=== PATIENT | male | born 1940 | race Caucasian/White ===

== ENCOUNTER 2023-04-30 13:27 | Inpatient (IN) | payer OTHER ==
[2023-04-30 14:03] LABS: Absolute Lymphocytes (CBC) 0.5 K/uL (0.7-4.9); Basophils % 0.3 % (0-1.3); Hematocrit 45.4 % (39.6-49.0); Lymphocytes % 6.1 % (15.3-44.8); MCV 88.4 fL (80-100); MPV 8.7 fL (7.6-11.3); Platelets 266 thou/uL (152-406); RBC Red Blood Cell Count 5.14 M/uL (4.33-5.43)
[2023-04-30 14:06] LABS: Protime INR 1.26
[2023-04-30 14:14] LABS: Specific Gravity 1.009 (1.005-1.030); Urine Bacteria 20-50 /HPF (<20); Urine Bilirubin NEGATIVE (Negative); Urine Blood 2+ (Negative); Urine Clarity Extremely Turbid (Clear); Urine Color Light-Orange (Yellow); Urine Glucose 4+ (Over) (Negative); Urine Protein 2+ (Negative); Urine Urobilinogen Normal (Normal); Urine WBC Clump Many /HPF (None Seen)
[2023-04-30 14:19] LABS: Albumin/Globulin Ratio 0.4 (1.1-1.8); Anion Gap 15.3 mEq/L (5.0-15.0); Bilirubin Total 0.6 mg/dL (0.2-1.0); Potassium 5.3 mEq/L (3.5-5.1)
[2023-04-30 14:37] LABS: Blood Morphology Comment NOT SEEN (NOT SEEN); Platelet Estimate ADEQ; White Blood Cell Scan OK (OK)
--- NOTE | 2023-04-30 15:26 | RAD REPORT ---
EXAM DESCRIPTION: CT - Abdomen Pelvis Wo Contrast - 04/30/2023 2:34 pm CLINICAL HISTORY: back pain, possible urinary infection;Abd pain COMPARISON: No comparisons TECHNIQUE: Thin cut axial CT imaging of the abdomen and pelvis was performed without IV contrast. Mu ltiplanar reformats were generated and reviewed. All CT scans are performed using dose optimization technique as appropriate and may include automated exposure control or mA/KV adjustment according to patient size. FINDINGS: No suspicious findings in the lung bases. Calcific pleural plaque. The liver shows a subcentimeter hypoattenuating focus near the dome, characterized but suggestive of a small cyst. Adrenal glands, Spleen, and pancreas show no suspicious findings. Small layering gallst ones. Symmetric renal contour, without suspicious parenchymal findings within limits of noncontrast techniq ue. Bilateral moderate to advanced hydroureteronephrosis. No radiopaque calculi. No dilated bowel loops or bowel wall thickening. No free air, free fluid or inflammatory stranding. N o hernia, mass or bulky lymphadenopathy. Soft tissue thickening in the presacral space. Ovoid fluid c ollection measuring 3.0 x 1.4 cm in greatest axial dimensions and 3.5 cm in greatest craniocaudal ext ent, with marginal calcifications The urinary bladder demonstrates diffuse wall prominence, with foca l wall thickening posteriorly. Mild prostatomegaly with calcifications. 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 No suspicious bony findings. IMPRESSION: Bilateral moderate to advanced hydronephrosis. No obstructing calculi. This could relate to strictures at the ureteral orifice ease, or bladder outlet obstruction with retrograde reflux. Diffuse bladder wall thickening with some focal thickening posteriorly. The findings are nonspecific, and could relate to infection, although possibility of malignancy would be difficult to exclude. Nonspecific fluid collection in the presacral space with marginal wall calcifications. This could rep resent a postoperative chronic seroma or chronic abscess. Infrarenal abdominal aortic aneurysm, with aneurysm sac measuring up to 4.1 cm in greatest dimension. Cholelithiasis.
--- NOTE | 2023-04-30 15:39 | ER ---
Nurse's Notes [facility] Name: Broderick Kaur Age: 83 yrs Sex: Male : 1940 Arrival Date: 04/30/2023 Time: 13:27 Bed 20 Private MD: Diagnosis: UTI/ Urinary tract infection, site not specified;Acute cystitis without hematuria;Other and unspecified hydronephrosis;Acute kidney failure, unspecified Presentation: 04/29 13:36 Chief complaint: Patient states: kidneys have been hurting. Coronavirus screen: At this iw time, the client does not indicate any symptoms associated with coronavirus-19. Ebola Screen: Patient negative for fever greater than or equal to 101.5 degrees Fahrenheit, and additional compatible Ebola Virus Disease symptoms Patient denies exposure to infectious person. Patient denies travel to an Ebola-affected area in the 21 days before illness onset. No symptoms or risks identified at this time. Risk Assessment: Do you want to hurt yourself or someone else? Patient reports no desire to harm self or others. 13:36 Method Of Arrival: Ambulatory iw 13:36 Acuity: KARI 3 iw 13:42 Initial Sepsis Screen: Does the patient meet any 2 criteria? No. Patient's initial iw sepsis screen is negative. Does the patient have a suspected source of infection? No. Patient's initial sepsis screen is negative. Onset of symptoms was April 30, 2023. Triage Assessment: 13:43 General: Appears in no apparent distress. Behavior is calm, cooperative. Pain: iw Complains of pain in back. Historical: - Allergies: 13:42 No Known Allergies; iw - PMHx: 13:36 AAA; ASBESTOS EXPOSURE; Atrial Fib; COLON CA; colostomy; Diabetes - IDDM; hemorrhoids; iw High Cholesterol; Hypertension; PERIPHERAL NEUROPATHY; PULMONARY HYPERTENSION; Rectal carcinoma; skin ca; skin cancer; SVT; - Immunization history:: Adult Immunizations up to date. - Family history:: not pertinent. - Social history:: Smoking status: Patient denies any tobacco usage or history of. - Hospitalizations: : No recent hospitalization is reported. Screenin:32 [facility] ED Fall Risk Assessment (Adult) Score/Fall Risk Level 0 - 2 = Low Risk. Abuse as6 screen: Denies threats or abuse. Denies injuries from another. Nutritional screening: No deficits noted. Tuberculosis screening: No symptoms or risk factors identified. Assessment: 14:54 General: Appears in no apparent distress. Behavior is calm, cooperative. Pain: as6 Complains of pain in back. Neuro: Level of Consciousness is awake, alert, obeys commands, Oriented to person, place, time, situation. Cardiovascular: Capillary refill < 3 seconds Patient's skin is warm and dry. Respiratory: Respiratory effort is even, unlabored, Respiratory pattern is regular, symmetrical. GI: Reports lower abdominal pain. : Reports burning with urination. EENT: No deficits noted. No signs and/or symptoms were reported regarding the EENT system. Derm: Skin is intact. Musculoskeletal: Circulation, motion, and sensation intact. 16:38 Reassessment: Patient appears in no apparent distress at this time. Patient states as6 feeling better. Vital Signs: 13:36 BP 123 / 88; Pulse 84; Resp 16; Temp 97.6; Pulse Ox 100% ; iw 14:55 BP 143 / 67; Pulse 63; Resp 18 S; Pulse Ox 97% on R/A; as6 16:34 BP 166 / 67; Pulse 55; Resp 16 S; Pulse Ox 100% on R/A; as6 17:44 BP 194 / 76; Pulse 55; Resp 18 S; Pulse Ox 100% on R/A; as6 19:20 BP 159 / 85; Pulse 74; Resp 18 S; Pulse Ox 97% on R/A; as6 ED Course: 13:31 Patient arrived in ED. mr 13:32 Jarred Jimenez MD is Attending Physician. rn 13:36 Triage completed. iw 13:51 CMP Sent. bc6 13:51 Protime (+inr) Sent. bc6 13:51 Ptt, Activated Sent. bc6 13:51 CBC with Diff Sent. bc6 13:51 Inserted saline lock: 22 gauge in left antecubital area, using aseptic technique. Blood bc6 collected. 14:31 João Ng, ELISHA is Primary Nurse. as6 14:32 Arm band placed on. as6 14:35 Abdomen In Process Unspecified. EDMS 14:55 Bed in low position. Call light in reach. Side rails up X2. as6 15:38 Hussain Higuera MD is Hospitalizing Provider. rn 15:41 Inserted saline lock: 22 gauge in right antecubital area, using aseptic technique. as6 Blood collected. 16:00 Aleman cath inserted, using sterile technique, 16 Fr., by ga, balloon inflated, to as6 gravity drainage, returned clear yellow urine. Patient tolerated well. 16:34 No provider procedures requiring assistance completed. Patient admitted, IV remains in as6 place. 16:34 Provided Education on: need for aleman and admit. as6 16:38 Warm blanket given. PO fluids given. as6 Administered Medications: 15:57 Drug: Rocephin IV 1 grams IV at calculated rate once; Given slow IV push per pharmacy as6 instructions Route: IV; Rate: calculated rate; Site: right antecubital; 16:30 Follow up: Response: No adverse reaction; IV Status: Completed infusion; IV Intake: [id number] 17:16 Drug: NS 0.9% IV 1000 ml IV at 1000 ml once Route: IV; Rate: 1000 ml; Site: right as6 antecubital; 19:21 Follow up: Response: No adverse reaction; IV Status: Completed infusion; IV Intake: as6 1000ml 17:18 Drug: Insulin Regular Human Sub-Q 10 units Sub-Q once {Co-Signature: as6 (abby Ng RN).} Route: Sub-Q; Site: right upper arm; 19:21 Follow up: Response: No adverse reaction as6 Medication: 14:32 VIS not applicable for this client. as6 Intake: 16:30 IV: 10ml; Total: 10ml. as6 19:21 IV: 1000ml; Total: 1010ml. as6 Output: 17:44 Urine: 1500ml (Aleman); Total: 1500ml. as6 Outcome: 15:38 Decision to Hospitalize by Provider. rn 16:34 Condition: stable as6 16:34 Instructed on the need for admit, 18:29 Admitted to ER Hold. Please see [facility] for further documentation. as6 20:06 Patient left the ED. as6 Signatures: Dispatcher [employer] Moriah Vázquez, Reg Reg mr Sushma Hartmann, RN Jarred Mackey MD MD rn Slawson, Ashby, RN RN as6 Belen Mcneill Ashby RN as6 Corrections: (The following items were deleted from the chart) 13:42 13:36 Pulse 84bpm; Resp 16bpm; Pulse Ox 100%; Temp 97.6F; iw iw
--- NOTE | 2023-04-30 15:39 | EDPHYS ---
Physician Documentation [facility] Name: Broderick Kaur Age: 83 yrs Sex: Male : 1940 Arrival Date: 04/30/2023 Time: 13:27 Bed 20 Private MD: ED Physician Jarred Jimenez HPI: 04/29 14:08 This 83 yrs old Male presents to ER via Ambulatory with complaints of Urinary Problem. rn 14:08 The patient presents with abdominal pain in the lower abdomen. Onset: The rn symptoms/episode began/occurred 1 month(s) ago. The symptoms radiate to abdomen. Associated signs and symptoms: Pertinent positives: dysuria, Pertinent negatives: nausea and vomiting, fever, hematuria, shortness of breath, testicular pain, vomiting, vomiting blood. Modifying factors: The symptoms are alleviated by nothing, the symptoms are aggravated by nothing. Severity of pain: At its worst the pain was mild in the emergency department the pain is unchanged. The patient has experienced a previous episode. Patient reports lower abdominal pain, lower back pain, increased urinary frequency and dysuria. States has been going on for about a month. [place] clinic put him on some sort of medication, does not think it was antibiotics, got better for a little while but then returned. Patient states similar episodes in the past when he had a urinary tract infection. No fever or chills. No vomiting.. Historical: - Allergies: 13:42 No Known Allergies; iw - PMHx: 13:36 AAA; ASBESTOS EXPOSURE; Atrial Fib; COLON CA; colostomy; Diabetes - IDDM; hemorrhoids; iw High Cholesterol; Hypertension; PERIPHERAL NEUROPATHY; PULMONARY HYPERTENSION; Rectal carcinoma; skin ca; skin cancer; SVT; - Immunization history:: Adult Immunizations up to date. - Family history:: not pertinent. - Social history:: Smoking status: Patient denies any tobacco usage or history of. - Hospitalizations: : No recent hospitalization is reported. ROS: 14:08 Constitutional: Negative for fever, chills, and weight loss, Cardiovascular: Negative rn for chest pain, palpitations, and edema, Respiratory: Negative for shortness of breath, cough, wheezing, and pleuritic chest pain, Abdomen/GI: Positive for abdominal pain Back: Positive for lower back pain : Positive for increased urinary frequency and dysuria MS/Extremity: Negative for injury and deformity, Neuro: Negative for headache, weakness, numbness, tingling, and seizure, Exam: 14:08 Constitutional: This is a well developed, well nourished patient who is awake, alert, rn and in no acute distress. Ambulatory to room without difficulty or assistance Head/Face: Normocephalic, atraumatic. Cardiovascular: Regular rate and rhythm. No pulse deficits. Respiratory: No increased work of breathing, no retractions or nasal flaring. Abdomen/GI: Soft, mild suprapubic tenderness. No rebound or guarding Back: No spinal tenderness. No costovertebral tenderness. Full range of motion. MS/ Extremity: Pulses equal, no cyanosis. Neurovascular intact. Full, normal range of motion. Equal circumference. Neuro: Awake and alert, GCS 15 Vital Signs: 13:36 BP 123 / 88; Pulse 84; Resp 16; Temp 97.6; Pulse Ox 100% ; iw 14:55 BP 143 / 67; Pulse 63; Resp 18 S; Pulse Ox 97% on R/A; as6 16:34 BP 166 / 67; Pulse 55; Resp 16 S; Pulse Ox 100% on R/A; as6 17:44 BP 194 / 76; Pulse 55; Resp 18 S; Pulse Ox 100% on R/A; as6 19:20 BP 159 / 85; Pulse 74; Resp 18 S; Pulse Ox 97% on R/A; as6 MDM: 13:32 Patient medically screened. rn 15:36 Differential diagnosis: non-specific abd pain, Pyelonephritis, urinary tract infection, rn Cystitis, bladder outlet obstruction, stricture, malignancy. Data reviewed: vital signs, nurses notes, lab test result(s), radiologic studies, CT scan, and as a result, I will admit patient. Consideration of Admission/Observation Patient was admitted/placed on observation. Escalation of care including admission/observation considered. Counseling: I had a detailed discussion with the patient and/or guardian regarding the historical points, exam findings, and any diagnostic results supporting the discharge/admit diagnosis, lab results, radiology results, the need for further work-up and treatment in the hospital. Special discussion:. ED course: Patient with UTI, cystitis, bilateral hydro. Patient was able to urinate on his own earlier and has been urinating at home. Will place Hugo catheter to see if helps decompress. IV antibiotics ordered after blood culture and lactate obtained. That shows acute kidney injury compared to last visit. Will admit for IV antibiotics. 04/29 13:38 Order name: Urinalysis w/ reflexes; Complete Time: 14:27 iw 04/29 13:38 Order name: CBC with Diff; Complete Time: 15:20 iw 04/29 13:38 Order name: Protime (+inr); Complete Time: 14:27 iw 04/29 13:38 Order name: Ptt, Activated; Complete Time: 14:27 iw 04/29 13:38 Order name: CMP; Complete Time: 14:27 iw 04/29 14:17 Order name: Urine Culture EDMS 04/29 14:34 Order name: CBC Smear Scan; Complete Time: 15:20 EDMI 04/29 15:22 Order name: Blood Culture Adult (2) rn 04/29 15:22 Order name: Lactate w/ 2H reflex if indic.; Complete Time: 16:41 rn 04/29 17:08 Order name: CBC with Automated Diff EDMS 04/29 17:08 Order name: CBC with Automated Diff EDMS 04/29 17:08 Order name: Comprehensive Metabolic Panel EDMS 04/29 17:08 Order name: Comprehensive Metabolic Panel EDMS 04/29 17:08 Order name: Creatine Phosphokinase EDMS 04/29 17:08 Order name: Creatine Phosphokinase EDMS 04/29 17:08 Order name: Protime (+INR) EDMS 04/29 17:08 Order name: Protime (+INR) EDMS 04/29 17:08 Order name: PSA Screen EDMS 04/29 17:08 Order name: PSA Screen EDMS 04/29 17:08 Order name: PTT, Activated Partial Thromb EDMS 04/29 17:08 Order name: PTT, Activated Partial Thromb EDMS 04/29 17:08 Order name: Troponin High Sensitivity EDMS 04/29 17:08 Order name: Troponin High Sensitivity EDMS 04/29 14:35 Order name: Abdomen ; Complete Time: 15:33 EDMS 04/29 17:08 Order name: CONS Physician Consult EDMS 04/29 17:08 Order name: CONS Physician Consult EDMS 04/29 13:38 Order name: IV Start; Complete Time: 13:51 iw 04/29 15:34 Order name: Hugo; Complete Time: 16:17 rn Administered Medications: 15:57 Drug: Rocephin IV 1 grams IV at calculated rate once; Given slow IV push per pharmacy as6 instructions Route: IV; Rate: calculated rate; Site: right antecubital; 16:30 Follow up: Response: No adverse reaction; IV Status: Completed infusion; IV Intake: [id number] 17:16 Drug: NS 0.9% IV 1000 ml IV at 1000 ml once Route: IV; Rate: 1000 ml; Site: right as6 antecubital; 19:21 Follow up: Response: No adverse reaction; IV Status: Completed infusion; IV Intake: as6 1000ml 17:18 Drug: Insulin Regular Human Sub-Q 10 units Sub-Q once {Co-Signature: as6 (abby Ng RN).} Route: Sub-Q; Site: right upper arm; 19:21 Follow up: Response: No adverse reaction as6 Disposition Summary: 04/30/23 15:38 Hospitalization Ordered Notes: Hospitalization Status: Inpatient Admission rn Provider: Hussain Higuera rn Condition: Stable rn Problem: new rn Symptoms: have improved rn Bed/Room Type: Standard rn Location: Telemetry/MedSurg (Inpatient)(04/30/23 19:13) rv1 Room Assignment: 202(04/30/23 19:13) rv1 Diagnosis - UTI/ Urinary tract infection, site not specified rn - Acute cystitis without hematuria rn - Other and unspecified hydronephrosis rn - Acute kidney failure, unspecified rn Forms: - Medication Reconciliation Form rn - SBAR form rn - Leadership Thank You Letter rn Signatures: Dispatcher [employer] EDSushma Kuo, RN Jarred Mackey MD MD rn Slawson, Ashby, RN RN as6 Daria Sherman RN RN Moriah Polanco rv1 João Ng RN as6 Corrections: (The following items were deleted from the chart) 14:35 13:39 Abdomen Pelvis W Con+CT.RAD.BRZ ordered. EDMS EDMS 17:45 15:38 Telemetry/MedSurg (Inpatient) rn kb3 17:45 15:38 rn kb3 19:13 17:45 BR ER HOLD kb3 rv1 19:13 17:45 ERHOLD- kb3 rv1
[2023-04-30] MEDS ORDERED: CEFTRIAXONE 1000 MG/VIAL ONE (15:50)
[2023-04-30] MEDS ORDERED: ONDANSETRON 4 MG/2 ML VIAL IV PRN (17:03)
[2023-04-30] MEDS ORDERED: ACETAMINOPHEN 500 MG TAB PO PRN (17:03)
--- NOTE | 2023-04-30 17:03 | P.HP ---
Certification for Inpatient Patient admitted to: Inpatient With expected LOS: >2 Midnights Patient will require the following post-hospital care: None Practitioner: I am a practitioner with admitting privileges, knowledge of patient current condition, hospital course, and medical plan of care. Services: Services provided to patient in accordance with Admission requirements found in Title 42 Section 412.3 of the Code of Federal Regulations Patient History Date of Service: 04/30/23 Reason for admission: UTI/bilateral hydronephrosis/obstructive uropathy/hematuria History of Present Illness: Patient is an 83-year-old gentleman has been having abdominal pain for the last month. Patient went and saw his [place] physician who prescribed him medication to h elp with his urine. However, patient states his urine flow has been diminished. He started having more more pain in the suprapubic region along with the flank region bilaterally. The pain got so severe he came into the emergency room. In the ER patient had imaging studies which revealed bilateral hydronephrosis and bladder distention. Patient had a Hugo catheter placed and patient has 2 L of urine output out. Patient with some mild hematuria. Patient denies having any prostate issues. Patient states he has had some cardiac issues in the past but nothing active. Patient will be admitted to the hospital for urology consultation. Will get a leg bag and arrange for outpatient follow-up with urology. Will get urology consultation in house, but if they are not available then will have outpatient follow-up. Continue with Flomax at this time. Allergies No Known Allergies Allergy (Unverified 06/02/16 15:48) - Past Medical/Surgical History -: DM2 - Family History Father Family History: Reviewed- Non-Contributory - Social History Smoking Status: Former smoker Alcohol use: No CD- Drugs: No Review of Systems 10-point ROS is otherwise unremarkable Physical Examination - Vital Signs Temperature: 98 F (reviewed) - Physical Exam General: Alert, In no apparent distress, Oriented x3 HEENT: Atraumatic, PERRLA, Mucous membr. moist/pink, EOMI, Sclerae nonicteric Neck: Supple, 2+ carotid pulse no bruit, No LAD, Without JVD or thyroid abnormality Respiratory: Clear to auscultation bilaterally, Normal air movement Cardiovascular: Regular rate/rhythm, Normal S1 S2 Gastrointestinal: Normal bowel sounds, Soft and benign, Non-distended, No tenderness Musculoskeletal: No clubbing, No swelling, No tenderness Integumentary: No rashes Neurological: Normal gait, Normal speech, Normal strength at 5/5 x4 extr, Normal tone, Sensation intact, Cranial nerves 3-12 intact, Normal affect Lymphatics: No axilla or inguinal lymphadenopathy - Studies Laboratory Data (last 24 hrs) 04/30/23 04/30/23 04/30/23 13:50 13:50 13:50 WBC 8.50 Hgb 14.9 Hct 45.4 Plt Count 266 PT 13.8 H INR 1.26 APTT 31.6 Sodium 128 L Potassium 5.3 H BUN 58 H Creatinine 2.41 H Glucose 591 H* Total Bilirubin 0.6 AST 8 L ALT 16 Alkaline Phosphatase 134 H Assessment & Plan - Problems (Diagnosis) (1) Obstructive uropathy Current Visit: Yes Status: Acute (2) Bilateral hydronephrosis Current Visit: Yes Status: Acute (3) UTI (urinary tract infection) Current Visit: Yes Status: Acute (4) Hematuria Current Visit: Yes Status: Acute (5) YVETTE (acute kidney injury) Current Visit: Yes Status: Acute (6) Hyperglycemia Current Visit: Yes Status: Acute (7) Hyperkalemia Current Visit: Yes Status: Acute - Plan Plan: 1. Continue with gentle hydration 2. Pain control 3. Hugo catheter with leg bag placement 4. Urology consultation 5. Prostate testing 6. IV antibiotics 7. Repeat and monitor renal function 8. Strict blood sugar control 9. Physical therapy evaluation 10. Home with home health Discharge Plan: Home Plan to discharge in: Greater than 2 days - Advance Directives Does patient have a Living Will: No Does patient have a Durable POA for Healthcare: No - Code Status/Comfort Care Code Status Assessed: Yes Code Status: Full Code Critical Care: No Time Spent Managing PTS Care (In Minutes): 45
[2023-04-30] MEDS ORDERED: MORPHINE 2 MG/ML SYR IV PRN (17:27)
[2023-04-30 20:12] VITALS: O2SAT 97
[2023-04-30] MEDS: INSULIN GLARGINE 100 UNIT/ML SQ SCH (21:59)
[2023-04-30] MEDS: INSULIN REGULAR (HUMAN) 100 UNIT/ML SQ SCH (22:00)
[2023-04-30] MEDS: NA CHLORIDE 0.9% 1,000 ML IV SCH (22:00)
[2023-04-30 22:12] VITALS: BMI 23.6
[2023-05-01 04:23] LABS: Absolute Lymphocytes (CBC) 0.4 K/uL (0.7-4.9); Basophils % 0.3 % (0-1.3); Hematocrit 40.3 % (39.6-49.0); Lymphocytes % 4.5 % (15.3-44.8); MCV 85.5 fL (80-100); MPV 8.4 fL (7.6-11.3); Platelets 210 thou/uL (152-406); RBC Red Blood Cell Count 4.72 M/uL (4.33-5.43)
[2023-05-01 04:24] LABS: Protime INR 1.31
[2023-05-01 04:43] LABS: Albumin 1.6 g/dL (3.4-5.0); Albumin/Globulin Ratio 0.4 (1.1-1.8); Anion Gap 11.6 mEq/L (5.0-15.0); Bilirubin Total 0.4 mg/dL (0.2-1.0); Potassium 4.6 mEq/L (3.5-5.1); Protein, Total 5.9 g/dL (6.4-8.2); Troponin High Sensitivity 51.1 pg/mL (<58.9)
--- NOTE | 2023-05-01 06:36 | P.PN ---
Subjective Date of Service: 05/01/23 Chief Complaint: UTI/bilateral hydronephrosis/obstructive uropathy/hematuria Admitted with bladder obstruction, acute cystitis, Hugo to bedside drainage, no reported abdominal pain General: Alert, In no apparent distress, Oriented x3 HEENT: Atraumatic, PERRLA, Mucous membr. moist/pink, EOMI, Sclerae nonicteric Neck: Supple, 2+ carotid pulse no bruit, No LAD, Without JVD or thyroid abnormality Respiratory: Clear to auscultation bilaterally, Normal air movement Cardiovascular: Regular rate/rhythm, Normal S1 S2 Gastrointestinal: Normal bowel sounds, Soft and benign, Non-distended, No tenderness : Hugo to bedside drain Musculoskeletal: No clubbing, No swelling, No tenderness Integumentary: No rashes Neurological: Normal gait, Normal speech, Normal strength at 5/5 x4 extr, Normal tone, Sensation intact, Cranial nerves 3-12 intact, Normal affect Lymphatics: No axilla or inguinal lymphadenopathy Review of Systems PER HPI Physical Examination - Vital Signs Temperature: 99.0 F Blood Pressure: 147/66 Pulse: 72 Respirations: 18 Pulse Ox (%): 95 - Studies Laboratory Data (last 24 hrs) 04/30/23 04/30/23 04/30/23 13:50 13:50 13:50 WBC 8.50 Hgb 14.9 Hct 45.4 Plt Count 266 PT 13.8 H INR 1.26 APTT 31.6 Sodium 128 L Potassium 5.3 H BUN 58 H Creatinine 2.41 H Glucose 591 H* Total Bilirubin 0.6 AST 8 L ALT 16 Alkaline Phosphatase 134 H Assessment And Plan - Plan Assessment & Plan - Problems (Diagnosis) Obstructive uropathy acute Current Visit: Yes Status: Acute Hugo to bedside drainage, Flomax Bilateral hydronephrosis acute Current Visit: Yes Status: Acute Acute cystitis with hematuria acute Current Visit: Yes Status: Acute IV ceftriaxone 2 g IV twice daily Hematuria acute Current Visit: Yes Status: Acute YVETTE (acute kidney injury) acute Current Visit: Yes Status: Acute BUN 58 creatinine 2.41 improving creatinine 1.79 Hyperglycemia acute Current Visit: Yes Status: Acute Lantus, sliding scale insulin Hyperkalemia Current Visit: Yes Status: Acute Pseudo hyponatremia secondary to hyperglycemia IV fluid, strict blood sugar control Plan: 1. Continue with gentle hydration 2. Pain control 3. Hugo catheter with leg bag placement 4. Urology consultation, nephrology consult 5. Prostate testing 6. IV antibiotics 7. Repeat and monitor renal function 8. Strict blood sugar control 9. Physical therapy evaluation 10. Home with home health Discharge Plan: Home Plan to discharge in: Greater than 2 days Discharge Plan: Home - Code Status/Comfort Care Code Status: Full Code Critical Care: No Time Spent Managing PTS Care (In Minutes): 35
--- NOTE | 2023-05-01 06:42 | P.PN ---
Subjective Date of Service: 05/02/23 Chief Complaint: UTI/bilateral hydronephrosis/obstructive uropathy/hematuria Admitted with bladder obstruction, acute cystitis, Hugo to bedside drainage, no reported abdominal pain, General: Alert, In no apparent distress, Oriented x3 HEENT: Atraumatic, PERRLA, Mucous membr. moist/pink, EOMI, Sclerae nonicteric Neck: Supple, 2+ carotid pulse no bruit, No LAD, Without JVD or thyroid abnormality Respiratory: Clear to auscultation bilaterally, Normal air movement Cardiovascular: Regular rate/rhythm, Normal S1 S2 Gastrointestinal: Normal bowel sounds, Soft and benign, Non-distended, No tenderness : Hugo to bedside drain Musculoskeletal: No clubbing, No swelling, No tenderness Integumentary: No rashes Neurological: Normal gait, Normal speech, Normal strength at 5/5 x4 extr, Lymphatics: No axilla or inguinal lymphadenopathy Review of Systems per HPI Physical Examination - Vital Signs Temperature: 99.0 F Blood Pressure: 147/66 Pulse: 72 Respirations: 18 Pulse Ox (%): 95 - Studies Laboratory Data (last 24 hrs) 04/30/23 04/30/23 04/30/23 13:50 13:50 13:50 WBC 8.50 Hgb 14.9 Hct 45.4 Plt Count 266 PT 13.8 H INR 1.26 APTT 31.6 Sodium 128 L Potassium 5.3 H BUN 58 H Creatinine 2.41 H Glucose 591 H* Total Bilirubin 0.6 AST 8 L ALT 16 Alkaline Phosphatase 134 H Assessment And Plan - Plan Assessment & Plan - Problems (Diagnosis) Obstructive uropathy acute Current Visit: Yes Status: Acute Urology consulted UA culture and sensitivity 3/ urology status post bladder irrigation, needs to follow-up with urology outpatient, continue IV antibiotics x 2 (14 days) weeks after discharge Repeat renal ultrasound 3 to 5 days after of IV antibiotic, and Hugo catheter placement Nursing to irrigate Hugo catheter 60 cc of normal saline x 2 every 4 hours while gross hematuria is present Follow-up cystoscopy in 1 to 3 weeks, with voiding trial Repeat on a renal ultrasound today Bilateral hydronephrosis acute Current Visit: Yes Status: Acute Acute cystitis with hematuria acute Current Visit: Yes Status: Acute Hematuria acute Current Visit: Yes Status: Acute YVETTE (acute kidney injury) acute Current Visit: Yes Status: Acute Hyperglycemia acute Current Visit: Yes Status: Acute Hyperkalemia Current Visit: Yes Status: Acute Hyponatremia acute IV fluid Plan: 1. Continue with gentle hydration 2. Pain control 3. Hugo catheter with leg bag placement 4. Urology consultation, nephrology consult 5. Prostate testing 6. IV antibiotics 7. Repeat and monitor renal function 8. Strict blood sugar control 9. Physical therapy evaluation 10. Home with home health Discharge Plan: Home Plan to discharge in: Greater than 2 days - Code Status/Comfort Care Code Status: Full Code Critical Care: No Time Spent Managing PTS Care (In Minutes): 35
[2023-05-01] MEDS: CEFTRIAXONE 1,000 MG in NA CHLORIDE 0.9% 50 ML IVPB SCH (08:28)
--- NOTE | 2023-05-01 12:39 | CON ---
Date of Consultation: 05/01/2023 Reason For Consultation: Elevated BUN and creatinine. History Of Present Illness: This is a pleasant 83-year-old gentleman with significant past medical h istory of diabetes, no neuropathy, no retinopathy, hypertension, no CAD, no arthritis. The patient w as in his regular state of health according to the patient for the last few weeks. The patient had a bdominal pain, [facility] The patient was given some medication for urinary retention . The patient came with the same pain as he did not improve, found to have UTI and found to have hyd ronephrosis, bilateral; Hugo inserted. The patient found to have acute kidney injury with elevation in BUN and creatinine. Upon presentation to the hospital, creatinine was 2.4 with GFR 26 and hyperg lycemia. After hydration and Hugo insertion, creatinine down to 1.7. GFR has been improved to 37. Reviewing the record for the patient back in 2016, in May, creatinine 1.4 with GFR of 48. The pat ient denied taking any nonsteroidal. No recent change in his medication. Past Medical History: 1.Diabetes. 2.Hypertension. 3.Hyperlipidemia. Allergies: NO KNOWN DRUG ALLERGY. Family History: Positive for hypertension. Social History: Ex-smoker. Denied alcohol. Denied drugs abuse. Review of Systems: Head and Neck: No red eye. No ear pain. GI: Has abdominal pain. : Has difficulty urination. CARDIOTHORACIC ANESTHESIA TECHNICIAN: Not applicable. Respiratory: No shortness of breath. Cardiovascular: No chest pain. Endocrine: No polydipsia. Skin: No rash. Neuro: No weakness. Musculoskeletal: Generalized fatigue. Current Medications: The patient is on include ceftriaxone, Tylenol, Zofran, insulin, IV fluid at 75 per hour. Physical Examination: Vital Signs: When I saw the patient, the patient is lying in bed, comfortable, flat. Blood pressure 136/53, pulse of 69, afebrile. Chest: Clear to auscultation. Heart: S1, S2. Systolic murmur. Abdomen: Soft, nontender. Extremities: No edema. Neurologic: Alert. No focality. Laboratory Data: Back in May 2016, creatinine 1.4, GFR 48. Yesterday, sodium 128, potassium 5.3, bicarb 21, BUN 58, creatinine 2.4. GFR 26. Blood sugar 591, calcium 9.2. Hemoglobin yesterday 14.9 . Today lab data, sodium 135, potassium 4.6, bicarb 21, BUN 48, creatinine 1.7, blood sugar 232. GF R 37. Calcium 8.6. PSA 8.1. Albumin 1.6. Corrected calcium is 10.6. Urinalysis, specific gravity 1.009, wbc's more than 50. Assessment And Plan: 1.Acute kidney injury secondary to obstructive uropathy on chronic kidney disease, on the recovery p hase. We will continue to monitor. Continue current hydration and we will aim for better control of his blood sugar and we will add Flomax. Follow up Urology. 2.Hypertension, controlled, optimal. Please avoid any diuretic or EMMANUEL inhibitor/ARB given the acute kidney injury. 3.Hyponatremia, depletional, superimposed with pseudohyponatremia secondary to hyperglycemia, recove red, resolved. 4.Hyperkalemia secondary to renal failure, resolved. 5.Diabetes as by Primary. 6.Urinary tract infection. Continue current antibiotic. I going to follow up culture. Thank you Dr. Higuera for allowing us to participate in the care of your patient. PRECIOUS Voice ID: [id number] Report ID: [id number]
[2023-05-01] MEDS: CEFTRIAXONE 1,000 MG in NA CHLORIDE 0.9% 50 ML IVPB ONE (13:25)
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
[2023-05-01] MEDS: OXYBUTYNIN ER 5 MG TAB PO SCH (20:11)
[2023-05-01] MEDS: TAMSULOSIN 0.4 MG SR CAP PO SCH (20:12)
[2023-05-01] MEDS: GLUCERNA SHAKE 237 ML CAN PO SCH (21:30)
[2023-05-02 04:47] LABS: Albumin 1.4 g/dL (3.4-5.0); Phosphorus 2.3 mg/dL (2.5-4.9); Uric Acid 6.1 mg/dL (3.5-7.2)
--- NOTE | 2023-05-02 04:53 | P.PN ---
Subjective Date of Service: 05/02/23 Chief Complaint: UTI/bilateral hydronephrosis/obstructive uropathy/hematuria Admitted with bladder obstruction, acute cystitis, Hugo to bedside drainage, no reported abdominal pain General: Alert, In no apparent distress, Oriented x3 HEENT: Atraumatic, PERRLA, Mucous membr. moist/pink, EOMI, Sclerae nonicteric Neck: Supple, 2+ carotid pulse no bruit, No LAD, Without JVD or thyroid abnormality Respiratory: Clear to auscultation bilaterally, Normal air movement Cardiovascular: Regular rate/rhythm, Normal S1 S2 Gastrointestinal: Normal bowel sounds, Soft and benign, Non-distended, No tenderness : Hugo to bedside drain Musculoskeletal: No clubbing, No swelling, No tenderness Integumentary: No rashes Neurological: Normal gait, Normal speech, Normal strength at 5/5 x4 extr, Normal tone, Sensation intact, Cranial nerves 3-12 intact, Normal affect Lymphatics: No axilla or inguinal lymphadenopathy Review of Systems HPI Physical Examination - Vital Signs Temperature: 98.3 F Blood Pressure: 134/65 Pulse: 66 Respirations: 16 Pulse Ox (%): 98 - Studies Microbiology Data (last 24 hrs): 04/30/23 15:38 Blood - Blood Blood Culture Gram Stain - Final 04/30/23 15:38 Blood - Blood Gram Stain - Final 04/30/23 15:55 Blood - Blood Blood Culture Gram Stain - Final 04/30/23 15:55 Blood - Blood Gram Stain - Final Assessment And Plan - Plan Assessment & Plan - Problems (Diagnosis) Obstructive uropathy acute Current Visit: Yes Status: Acute Hugo to bedside drainage, Flomax Bilateral hydronephrosis acute Current Visit: Yes Status: Acute Repeat renal ultrasound 05/01 IMPRESSION: Bilateral moderate hydronephrosis. Incidentally noted bilateral simple appearing renal cysts. Bladder is decompressed limiting evaluation. 04/30 urology status post bladder irrigation, needs to follow-up with urology outpatient, continue IV antibiotics x 2 (14 days) weeks after discharge Repeat renal ultrasound 3 to 5 days after of IV antibiotic, and Hugo catheter placement Nursing to irrigate Hugo catheter 60 cc of normal saline x 2 every 4 hours while gross hematuria is present Follow-up cystoscopy in 1 to 3 weeks, with voiding trial Repeat on a renal ultrasound today Acute cystitis with hematuria acute Current Visit: Yes Status: Acute IV ceftriaxone 2 g IV twice daily Bacteremia Gram-negative rods Ceftriaxone 2 g daily Repeat blood cultures 3 7 Hematuria acute Current Visit: Yes Status: Acute YVETTE (acute kidney injury) acute Current Visit: Yes Status: Acute BUN 58 creatinine 2.41 improving creatinine 1.79 Hyperglycemia acute Current Visit: Yes Status: Acute Lantus, sliding scale insulin Hyperkalemia Current Visit: Yes Status: Acute Pseudo hyponatremia secondary to hyperglycemia IV fluid, strict blood sugar control Plan: 1. Continue with gentle hydration 2. Pain control 3. Hugo catheter with leg bag placement 4. Urology consultation, nephrology consult 5. Prostate testing 6. IV antibiotics 7. Repeat and monitor renal function 8. Strict blood sugar control 9. Physical therapy evaluation 10. Home with home health Discharge Plan: Home Plan to discharge in: Greater than 2 days Discharge Plan: Home - Code Status/Comfort Care Code Status: Full Code Time Spent Managing PTS Care (In Minutes): 35
[2023-05-02 05:03] LABS: Absolute Lymphocytes (CBC) 0.7 K/uL (0.7-4.9); Basophils % 0.5 % (0-1.3); Hematocrit 39.1 % (39.6-49.0); Lymphocytes % 7.7 % (15.3-44.8); MPV 9.2 fL (7.6-11.3); Platelets 203 thou/uL (152-406); RBC Red Blood Cell Count 4.54 M/uL (4.33-5.43)
--- NOTE | 2023-05-02 08:44 | P.DS ---
Admission Date: 04/30/23 Discharge Date: 05/05/23 Disposition: DC HOME/HOME HEALTH CARE Reason for Admission: UTI/bilateral hydronephrosis/obstructive uropathy/hematuria Brief History of Present Illness: 83-year-old gentleman has been having abdominal pain for the last month. Patient went and saw his [place] physician who prescribed him medication to help with his urine. However, patient states his urine flow has been diminished. He started having more more pain in the suprapubic region along with the flank region bilaterally. The pain got so severe he came into the emergency room. In the ER patient had imaging studies which revealed bilateral hydronephrosis and bladder distention. Patient had a Hugo catheter placed and patient has 2 L of urine output out. Patient with some mild hematuria. Patient denies having any prostate issues. Patient states he has had some cardiac issues in the past but nothing active. Patient will be admitted to the hospital for urology consultation. Will get a leg bag and arrange for outpatient follow-up with uro logy. Will get urology consultation in house, but if they are not available then will have outpatient follow-up. Continue with Flomax at this time. General: Alert, In no apparent distress, Oriented x3 HEENT: Atraumatic, PERRLA, Mucous membr. moist/pink, EOMI, Sclerae nonicteric Neck: Supple, 2+ carotid pulse no bruit, No LAD, Without JVD or thyroid abnormality Respiratory: Clear to auscultation bilaterally, Normal air movement Cardiovascular: Regular rate/rhythm, Normal S1 S2 Gastrointestinal: Normal bowel sounds, Soft and benign, Non-distended, No tenderness Musculoskeletal: No clubbing, No swelling, No tenderness Integumentary: No rashes Neurological: Normal gait, Normal speech, Normal strength at 5/5 x4 extr, Normal tone, Sensation intact, Cranial nerves 3-12 intact, Normal affect Lymphatics: No axilla or inguinal lymphadenopathy Hospital Course: 83 year-old male patient presented with abdominal pain. Was noted to have bladder obstruction, bilateral hydronephrosis, acute cystitis, hematuria. Condition improved with bladder irrigations, Hugo catheter, IV antibiotics, urology consultation. Patient was evaluated with urology, plan to repeat renal ultrasound. Patient tolerating diet, stable for discharge to home with follow-up appointment with primary care physician, with nephrology PROBLEM: bladder obstruction bilateral hydronephrosis acute cystitis hematuria New prescription Bactrim DS Oxybutynin Flomax Glucerna today Dhruv Semlee Discharge with Hugo catheter, Repeat renal ultrasound prior to discharge 14 days of p.o. antibiotics to ensure resolution of acute cystitis UA culture and sensitivity needs to follow-up with urology outpatient, continue IV antibiotics x 2 (14 days) weeks after discharge Follow-up cystoscopy in 1 to 3 weeks, with voiding trial Continue home medicines as previously prescribed GOAL: Clear understanding of disease process INSTRUCTIONS: Physician Discharge Instructions: -Follow-up with PCP in 1 to 2 weeks -Please call Dr. Higuera at [phone] if any questions regarding hospital stay -Please call nursing station at [phone] if any nursing or medication questions -Return to the emergency room if symptoms worsen Diet: ADA, low sodium Activity: Fall precautions Vital Signs/Physical Exam: Temp Pulse Resp BP Pulse Ox 99.0 F 72 18 147/66 H 95 05/02/23 08:38 05/02/23 08:38 05/02/23 08:38 05/02/23 08:38 05/02/23 08:38 Laboratory Data at Discharge: WBC 8.60 thou/uL (4.3-10.9) 05/02/23 04:06 Hgb 13.0 g/dL (13.6-17.9) L 05/02/23 04:06 Hct 39.1 % (39.6-49.0) L 05/02/23 04:06 Plt Count 203 thou/uL (152-406) 05/02/23 04:06 PT 14.3 SECONDS (9.5-12.5) H 05/01/23 04:01 INR 1.31 05/01/23 04:01 APTT 26.5 SECONDS (24.3-36.9) 05/01/23 04:01 Sodium 135 mEq/L (136-145) L 05/02/23 04:06 Potassium 4.0 mEq/L (3.5-5.1) D 05/02/23 04:06 BUN 39 mg/dL (7-18) H 05/02/23 04:06 Creatinine 1.47 mg/dL (0.70-1.30) H 05/02/23 04:06 Glucose 214 mg/dL (74-106) H 05/02/23 04:06 Uric Acid 6.1 mg/dL (3.5-7.2) 05/02/23 04:06 Phosphorus 2.3 mg/dL (2.5-4.9) L 05/02/23 04:06 Total Bilirubin 0.4 mg/dL (0.2-1.0) 05/01/23 04:01 AST 13 U/L (15-37) L 05/01/23 04:01 ALT 16 U/L (16-61) 05/01/23 04:01 Alkaline Phosphatase 114 U/L (45-117) 05/01/23 04:01 Home Medications: Allopurinol 100 mg PO DAILY 05/02/23 Amlodipine Besylate 10 mg PO DAILY 05/02/23 Atorvastatin Calcium [Lipitor] 120 mg PO BEDTIME 05/02/23 Cyanocobalamin (Vitamin B-12) [Vitamin B-12] 1,000 mcg PO DAILY 05/02/23 Ergocalciferol (Vitamin D2) [Drisdol] 1,250 mcg PO SEECOM 05/02/23 Ferrous Gluconate 324 mg PO DAILY 05/02/23 Furosemide 20 mg PO DAILY 05/02/23 Isosorbide Mononitrate [Isosorbide Mononitrate ER] 300 mg PO DAILY 05/02/23 Lisinopril [Zestril] 30 mg PO DAILY 05/02/23 Rivaroxaban [Xarelto*] 20 mg PO DAILY AT SUPPER 05/02/23 Glucerna Shake [Glucerna*] 237 ml PO BID #60 can 05/03/23 Insulin Glargine,Hum.rec.anlog [Semglee] 20 unit SQ BEDTIME #2 vial 05/03/23 Dhruv [Dhruv*] 1 each PO BID #60 packet 05/03/23 Smz./Tmp. [Bactrim Ds 800 MG/160 MG] 1 tab PO BID 14 Days #28 tab 05/03/23 Tamsulosin [Flomax*] 0.4 mg PO BEDTIME 30 Days #30 cap 05/03/23 oxyBUTYnin chloride [Ditropan Xl*] 5 mg PO DAILY #30 tab.sa 05/03/23 New Medications: Smz./Tmp. [Bactrim Ds 800 MG/160 MG] 1 tab PO BID 14 Days #28 tab oxyBUTYnin chloride [Ditropan Xl*] 5 mg PO DAILY #30 tab.sa Tamsulosin [Flomax*] 0.4 mg PO BEDTIME 30 Days #30 cap Glucerna Shake [Glucerna*] 237 ml PO BID #60 can Dhruv [Dhruv*] 1 each PO BID #60 packet Insulin Glargine,Hum.rec.anlog [Semglee] 20 unit SQ BEDTIME #2 vial Physician Discharge Instructions: 83 year-old male patient presented with abdominal pain. Was noted to have bladder obstruction, bilateral hydronephrosis, acute cystitis, hematuria. Condition improved with bladder irrigations, Hugo catheter, IV antibiotics, urology consultation. Patient was evaluated with urology, plan to repeat renal ultrasound. Patient tolerating diet, stable for discharge to home with follow-up appointment with primary care physician, with nephrology PROBLEM: bladder obstruction bilateral hydronephrosis acute cystitis hematuria Discharge with Hugo catheter, / Repeat renal ultrasound prior to discharge impression: Bilateral moderate hydronephrosis. Bilateral simple appearing renal cysts. Bladder is decompressed. 14 days of p.o. antibiotics to ensure resolution of acute cystitis UA culture and sensitivity chosen [facility] services. Sw sent referral to [facility]. To assist with Hugo catheter needs to follow-up with urology outpatient, continue IV antibiotics x 2 (14 days) weeks after discharge Follow-up cystoscopy in 1 to 3 weeks, with voiding trial Discharge home with home health for assistance with Hugo care Continue home medicines as previously prescribed GOAL: Clear understanding of disease process INSTRUCTIONS: Physician Discharge Instructions: -Follow-up with PCP in 1 to 2 weeks -Please call Dr. Higuera at [phone] if any questions regarding hospital stay -Please call nursing station at [phone] if any nursing or medication questions -Return to the emergency room if symptoms worsen Diet: ADA, low sodium Activity: Fall precautions Diet: Low sodium Activity: Fall precautions Followup: NONE,NONE [Primary Care Provider] - Time spent managing pt's care (in minutes): 55
[2023-05-02] MEDS: CEFTRIAXONE 2,000 MG in NA CHLORIDE 0.9% 50 ML IV SCH (10:21)
--- NOTE | 2023-05-02 10:38 | RAD REPORT ---
EXAM DESCRIPTION: US - Renal Ultrasound-Complete - 05/02/2023 9:44 am CLINICAL HISTORY: Hydronephrosis COMPARISON: Abdomen Pelvis Wo Contrast dated 04/30/2023 TECHNIQUE: Sonographic grayscale and color flow images of the kidneys and bladder were obtained. FINDINGS: Both kidneys are normal in size, shape, and echotexture. The right kidney measures 11.4 cm in length. No focal mass, or echogenic calculi. The left kidney measures 11.4 cm in length. No focal mass, or echogenic calculi. Bilateral moderate hydronephrosis, with AP diameter of the pelvis measuring 2.8 cm on the right and 1 .9 cm on the left. Multiple small cortical cysts, largest measuring 2.1 cm on the left near the lower pole. The urinary bladder is decompressed with Hugo catheter balloon seen. IMPRESSION: Bilateral moderate hydronephrosis. Incidentally noted bilateral simple appearing renal cysts. Bladder is decompressed limiting evaluation.
[2023-05-02] MEDS: NA CHLORIDE 0.9% 1,000 ML IV SCH (12:57)
--- NOTE | 2023-05-02 14:57 | PN ---
Date of Progress Note: 05/02/2023 Subjective: The patient was admitted with obstructive uropathy. The patient seen by Urology. Patti nued intermittent irrigation. Kidney function continued to improve. Physical Examination: General: When I saw the patient, the patient lying in bed. Vital Signs: Blood pressure 145/73, pulse of 75, afebrile. Chest: Clear to auscultation. Heart: S1, S2 regular. Abdomen: Soft, nontender. Extremities: No edema. Neurologic: Alert. No focality. Labs: WBC 7.6, hemoglobin 13. Sodium 135, potassium 4, bicarb 20, BUN 39, creatinine 1.4, continued to improve. Calcium 8.1, uric acid 6.1, phosphorus 2.3, albumin 1.4, corrected calcium is 10.2. Current Medications: The patient on include: 1.Ceftriaxone. 2.Flomax. 3.Zofran. 4.Insulin. 5.IV fluid at 75 per hour. Assessment And Plan: 1.Acute kidney injury multifactorial secondary to obstructive uropathy, prerenal, on the recovery ph ase. The patient close to baseline. I am going to decrease the IV fluid to 50. However, continue F aleksandra. Follow up with Urology. 2.Hypertension, controlled, optimal. Continue current treatment. 3.Hyponatremia, depletional. Will continue hydration. 4.Hyperkalemia, resolved. 5.Obstructive uropathy. Follow up with Urology. 6.UTI, complicated, with obstructive uropathy. Will follow up culture. Continue current antibiotic . Growing klebsiella which is sensitive to Levaquin, so the patient needs to be switched to quinolone or Augmentin orally if okay f rom the renal standpoint. ANTWAN/JUSTYN Voice ID: [id number] Report ID: [id number]
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
[2023-05-03 05:39] LABS: Albumin 1.4 g/dL (3.4-5.0)
--- NOTE | 2023-05-03 07:26 | P.PN ---
Subjective Date of Service: 05/03/23 Chief Complaint: UTI/bilateral hydronephrosis/obstructive uropathy/hematuria Discharge held plan to insert coud catheter by Dr. Jones General: Alert, In no apparent distress, Oriented x3 HEENT: Atraumatic, PERRLA, Mucous membr. moist/pink, EOMI, Sclerae nonicteric Neck: Supple, 2+ carotid pulse no bruit, No LAD, Without JVD or thyroid abnormality Respiratory: Clear to auscultation bilaterally, Normal air movement Cardiovascular: Regular rate/rhythm, Normal S1 S2 Gastrointestinal: Normal bowel sounds, Soft and benign, Non-distended, No tenderness : Hugo to bedside drain Musculoskeletal: No clubbing, No swelling, No tenderness Integumentary: No rashes Neurological: Normal gait, Normal speech, Normal strength at 5/5 x4 extr, Normal tone, Sensation intact, Cranial nerves 3-12 intact, Normal affect Lymphatics: No axilla or inguinal lymphadenopathy Review of Systems Per HPI Physical Examination - Vital Signs Temperature: 97.3 F Blood Pressure: 124/61 Pulse: 59 Respirations: 16 Pulse Ox (%): 96 - Studies Microbiology Data (last 24 hrs): 04/30/23 15:38 Blood - Blood Aerobic Blood Culture - Final Klebsiella Pneumoniae 04/30/23 15:38 Blood - Blood Blood Culture Gram Stain - Final 04/30/23 15:38 Blood - Blood Anaerobic Blood Culture - Final Klebsiella Pneumoniae 04/30/23 15:38 Blood - Blood Gram Stain - Final 04/30/23 15:55 Blood - Blood Aerobic Blood Culture - Final Klebsiella Pneumoniae 04/30/23 15:55 Blood - Blood Blood Culture Gram Stain - Final 04/30/23 15:55 Blood - Blood Anaerobic Blood Culture - Final Klebsiella Pneumoniae 04/30/23 15:55 Blood - Blood Gram Stain - Final 04/30/23 13:55 Clean Catch Urine [place] Count - Final >100,000 CFU/ML. 04/30/23 13:55 Clean Catch Urine - Final Klebsiella Pneumoniae Assessment And Plan - Plan Assessment & Plan - Problems (Diagnosis) Obstructive uropathy acute improving Current Visit: Yes Status: Acute Hugo to bedside drainage, Flomax Bilateral hydronephrosis acute improving Current Visit: Yes Status: Acute Repeat renal ultrasound 05/01 IMPRESSION: Bilateral moderate hydronephrosis. Incidentally noted bilateral simple appearing renal cysts. Bladder is decompressed limiting evaluation. 04/30 urology status post bladder irrigation, needs to follow-up with urology outpatient, continue IV antibiotics x 2 (14 days) weeks after discharge Repeat renal ultrasound 3 to 5 days after of IV antibiotic, and Hugo catheter placement Nursing to irrigate Hugo catheter 60 cc of normal saline x 2 every 4 hours while gross hematuria is present Follow-up cystoscopy in 1 to 3 weeks, with voiding trial Repeat renal ultrasound today 05/02/2023 renal ultrasound impression: Bilateral moderate hydronephrosis. Bilateral simple appearing renal cysts. Bladder is decompressed. 05/02 Dr. Burkett to insert coud catheter discharge he will receive Acute cystitis with hematuria acute improving Current Visit: Yes Status: Acute IV ceftriaxone 2 g IV twice daily 04/30/2023 urine culture revealed Klebsiella resistant to ampicillin and Macrobid, intermediate to Cipro Bacteremia Gram-negative rods Ceftriaxone 2 g daily Repeat blood cultures 05/02 pending report Hematuria acute Current Visit: Yes Status: Acute YVETTE (acute kidney injury) acute Current Visit: Yes Status: Acute BUN 58 creatinine 2.41 improving creatinine 1.79 Nephrology is following Trend kidney function Hyperglycemia acute Current Visit: Yes Status: Acute Lantus, sliding scale insulin Hyperkalemia Current Visit: Yes Status: Acute Pseudo hyponatremia secondary to hyperglycemia IV fluid, strict blood sugar control Plan: 1. Continue with gentle hydration 2. Pain control 3. Hugo catheter with leg bag placement 4. Urology consultation, nephrology consult 5. Prostate testing 6. IV antibiotics 7. Repeat and monitor renal function 8. Strict blood sugar control 9. Physical therapy evaluation 10. Home with home health Discharge Plan: Home Plan to discharge in: Greater than 2 days Discharge Plan: Home - Code Status/Comfort Care Code Status: Full Code Critical Care: No Time Spent Managing PTS Care (In Minutes): 35
[2023-05-03] MEDS: LIDOCAINE JELLY 2% 5 ML SYRINGE TOP ONE (14:24)
--- NOTE | 2023-05-03 16:15 | PN ---
Date of Progress Note: 05/03/2023 Subjective: The patient was admitted with obstructive uropathy, hematuria, acute kidney injury. The patient was started on hydration. Hugo was inserted. Started on irrigation by Urology. Kidney fu nction started improving. Hematuria resolved, but yesterday rebound. Physical Examination: Vital Signs: Blood pressure 153/80, pulse of 69, afebrile. Chest: Clear to auscultation. Heart: S1, S2. Systolic murmur. Abdomen: Soft, nontender. Extremities: No edema. Neurologic: Alert. No focality. : The patient has Hugo with hematuria. Laboratory Data: Hemoglobin 13. Sodium 138, potassium 4, bicarb 20, BUN 34, creatinine down to 1.2. GFR of 59. Calcium 8. Phosphorus 2. Albumin 1.4. Corrected calcium is 10. Current Medications: The patient is on include ceftriaxone, Flomax, Tylenol, insulin, IV fluid. Assessment And Plan: 1.Acute kidney injury secondary to obstructive uropathy, prerenal, recovered, resolved. Given the p resence of hematuria, I am going to continue with the IV fluid currently. 2.Hypertension, controlled, optimal. Continue current treatment. 3.Hyponatremia, depletional, recovered, resolved. 4.Hyperkalemia secondary to renal failure, resolved. 5.Acidosis secondary to IV fluid and renal failure, mild. No need for any bicarb drip. I am going to start with only oral and we will monitor the patient. 6.Obstructive uropathy as above. We will follow up with Urology. Continue intermittent irrigation. Continue Flomax and Hugo. ANTWAN/JUSTYN Voice ID: [id number] Report ID: [id number]
[2023-05-03] MEDS: SODIUM BICARB 325 MG TAB PO SCH (21:31)
[2023-05-04 04:13] LABS: Albumin 1.4 g/dL (3.4-5.0); Anion Gap 10.8 mEq/L (5.0-15.0); Phosphorus 2.5 mg/dL (2.5-4.9); Potassium 3.8 mEq/L (3.5-5.1)
--- NOTE | 2023-05-04 07:19 | P.PN ---
Subjective Date of Service: 05/04/23 Chief Complaint: UTI/bilateral hydronephrosis/obstructive uropathy/hematuria Discharge held plan to insert coud catheter by Dr. Jones Hugo irrigation every 4 hours General: Alert, In no apparent distress, Oriented x3 HEENT: Atraumatic, PERRLA, Mucous membr. moist/pink, EOMI, Sclerae nonicteric Neck: Supple, 2+ carotid pulse no bruit, No LAD, Without JVD or thyroid abnormality Respiratory: Clear to auscultation bilaterally, Normal air movement Cardiovascular: Regular rate/rhythm, Normal S1 S2 Gastrointestinal: Normal bowel sounds, Soft and benign, Non-distended, No tenderness : Hugo to bedside drain Musculoskeletal: No clubbing, No swelling, No tenderness Integumentary: No rashes Neurological: Normal gait, Normal speech, Normal strength at 5/5 x4 extr, Normal tone, Sensation intact, Cranial nerves 3-12 intact, Normal affect Lymphatics: No axilla or inguinal lymphadenopathy Review of Systems Per HPI Physical Examination - Vital Signs Temperature: 98.2 F Blood Pressure: 151/67 Pulse: 51 Respirations: 18 Pulse Ox (%): 98 - Studies Microbiology Data (last 24 hrs): 04/30/23 15:38 Blood - Blood Aerobic Blood Culture - Final Klebsiella Pneumoniae 04/30/23 15:38 Blood - Blood Blood Culture Gram Stain - Final 04/30/23 15:38 Blood - Blood Anaerobic Blood Culture - Final Klebsiella Pneumoniae 04/30/23 15:38 Blood - Blood Gram Stain - Final 04/30/23 15:55 Blood - Blood Aerobic Blood Culture - Final Klebsiella Pneumoniae 04/30/23 15:55 Blood - Blood Blood Culture Gram Stain - Final 04/30/23 15:55 Blood - Blood Anaerobic Blood Culture - Final Klebsiella Pneumoniae 04/30/23 15:55 Blood - Blood Gram Stain - Final Assessment And Plan - Plan Assessment & Plan - Problems (Diagnosis) Obstructive uropathy acute improving Current Visit: Yes Status: Acute Hugo to bedside drainage, Flomax Bilateral hydronephrosis acute improving Current Visit: Yes Status: Acute Repeat renal ultrasound 05/01 IMPRESSION: Bilateral moderate hydronephrosis. Incidentally noted bilateral simple appearing renal cysts. Bladder is decompressed limiting evaluation. 04/30 urology status post bladder irrigation, needs to follow-up with urology outpatient, continue IV antibiotics x 2 (14 days) weeks after discharge Repeat renal ultrasound 3 to 5 days after of IV antibiotic, and Hugo catheter placement Nursing to irrigate Hugo catheter 60 cc of normal saline x 2 every 4 hours while gross hematuria is present Follow-up cystoscopy in 1 to 3 weeks, with voiding trial Repeat renal ultrasound today 05/02/2023 renal ultrasound impression: Bilateral moderate hydronephrosis. Bilateral simple appearing renal cysts. Bladder is decompressed. 05/02 Dr. Burkett to insert coud catheter discharge he will receive Acute cystitis with hematuria acute improving Current Visit: Yes Status: Acute IV ceftriaxone 2 g IV twice daily 04/30/2023 urine culture revealed Klebsiella resistant to ampicillin and Macrobid, intermediate to Cipro Bacteremia Gram-negative rods Ceftriaxone 2 g daily Repeat blood cultures 05/02 pending report Hematuria acute Current Visit: Yes Status: Acute YVETTE (acute kidney injury) acute Current Visit: Yes Status: Acute BUN 58 creatinine 2.41 improving creatinine 1.79 Nephrology is following Trend kidney function Hyperglycemia acute Current Visit: Yes Status: Acute Lantus, sliding scale insulin Hyperkalemia Current Visit: Yes Status: Acute Pseudo hyponatremia secondary to hyperglycemia IV fluid, strict blood sugar control Plan: 1. Continue with gentle hydration 2. Pain control 3. Hugo catheter with leg bag placement 4. Urology consultation, nephrology consult 5. Prostate testing 6. IV antibiotics 7. Repeat and monitor renal function 8. Strict blood sugar control 9. Physical therapy evaluation 10. Home with home health Discharge Plan: Home Plan to discharge in: Greater than 2 days Discharge Plan: Home - Code Status/Comfort Care Code Status: Full Code Critical Care: No Time Spent Managing PTS Care (In Minutes): 35
[2023-05-04] MEDS: ALBUMIN HUMAN 25% 100 ML IV ONE (08:42)
[2023-05-04 09:08] VITALS: BP 174/77; TEMP 97.9
== END 2023-05-04 11:38 | disposition home health service (06) | DRG 690 ==
LOC: ER 13:27 → ERHOLD 17:03 → 2ND 19:30
PROVIDERS: ADMIT Hospitalist; ATTEND Hospitalist
PROC: 0T9B70Z Drainage of Bladder with Drainage Device, Via Natural or Artificial Opening (ICD-10-PCS; principal; 2023-04-30)
DX: N13.6 Pyonephrosis (principal); I48.20 Chronic atrial fibrillation, unspecified; E87.1 Hypo-osmolality and hyponatremia; R78.81 Bacteremia; N17.9 Acute kidney failure, unspecified; E87.5 Hyperkalemia; I10 Essential (primary) hypertension; E11.42 Type 2 diabetes mellitus with diabetic polyneuropathy; E11.65 Type 2 diabetes mellitus with hyperglycemia; E78.00 Pure hypercholesterolemia, unspecified; N28.1 Cyst of kidney, acquired; N32.0 Bladder-neck obstruction; M10.9 Gout, unspecified; N39.490 Overflow incontinence; R31.0 Gross hematuria; R33.9 Retention of urine, unspecified; Z93.3 Colostomy status; Z79.4 Long term (current) use of insulin; Z90.49 Acquired absence of other specified parts of digestive tract; Z85.038 Personal history of other malignant neoplasm of large intestine; Z85.828 Personal history of other malignant neoplasm of skin; Z87.891 Personal history of nicotine dependence; Z79.899 Other long term (current) drug therapy
CPT/HCPCS: 36415; 51702; 74176; 76770; 80053; 80069; 81001; 82550; 82947; 83605; 83970; 84484; 84550; 85025; 85610; 85730; 87040; 87077; 87086; 87088; 87186; 87205; 96361; 96365; 96372; 97110; 97116; 97161; 97530; 99285; G0103; J0696; J1815; J7030; P9047

== ENCOUNTER 2024-02-25 09:03 | Emergency (ER) | payer OTHER ==
--- OUTSIDE RECORDS SUMMARY | 2024-02-25 09:06 | XMS REPORT | Continuity of Care Document ---
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 Name Role Phone Unavailable Unavailable Unavailable Problems Condition Name Condition Details Condition Category Status Onset Date Resolution Date Last Treatment Date Treating Clinician Comments Source Urinary retention Urinary retention Problem [facility] [id number] Benign prostatic hyperplasi a with lower urinary tract symptoms Problem [facility] [id number] Acute urinary retention Problem [facility] [id number] Other obstructiv e and reflux uropathy Problem [facility] [id number] Elevated PSA Problem [facility] [id number] Bilateral hydronephr osis Problem [facility] [id number] Detrusor dysfunctio n Problem [facility] [id number] Detrusor instabilit y Problem [facility] [id number] Gross hematuria Problem [facility] Social History Social Habit Start Date Stop Date Quantity Comments Source History of Tobacco Use [facility] Sex Assigned At [facility] Smoking Status Start Date Stop Date Source Never Smoker [facility] Medications Ordered Medication Name Filled Medication Name Start Date Stop Date Current Medication? Ordering Clinician Indication Dosage Frequency Signature (SIG) Comments Components Source Lisinopril 30 MG Lisinopril 30 MG No 1{table t} QD Lisinopril 30 MG Ergocalcife rol 1.25 MG (12997 UT) Ergocalcife rol 1.25 MG (39790 UT) No 1{capsu le} Ergocalcif geovani 1.25 MG (72818 UT) Furosemide 20 MG Furosemide 20 MG No 1{table t} QD Furosemide 20 MG amLODIPine Besylate 10 MG amLODIPine Besylate 10 MG No 1{table t} QD amLODIPine Besylate 10 MG Insulin Glargine Insulin Glargine No Insulin Glargine Tamsulosin HCl 0.4 MG Tamsulosin HCl 0.4 MG No 1{capsu le} QD Tamsulosin HCl 0.4 MG Allopurinol 100 MG Allopurinol 100 MG No 1{table t} QD Allopurino l 100 MG oxyBUTYnin Chloride ER 5 MG oxyBUTYnin Chloride ER 5 MG No 1{table t} QD oxyBUTYnin Chloride ER 5 MG Ferrous Gluconate 324 (37.5 Fe) MG Ferrous Gluconate 324 (37.5 Fe) MG No 1{table t} Ferrous Gluconate 324 (37.5 Fe) MG Tylenol 325 MG Tylenol 325 MG No 2{capsu le_as_n eeded} TID Tylenol 325 MG Atorvastati n Calcium 80 MG Atorvastati n Calcium 80 MG No 1{table t} QD Atorvastat in Calcium 80 MG NovoLOG FlexPen 100 UNIT/ML NovoLOG FlexPen 100 UNIT/ML No NovoLOG FlexPen 100 UNIT/ML Sulfamethox azole-Trime thoprim 800-160 MG Sulfamethox azole-Trime thoprim 800-160 MG No 1{table t} Sulfametho xazole-Tri methoprim 800-160 MG Xarelto 20 MG Xarelto 20 MG No 1{table t_with_ food} QD Xarelto 20 MG Vitamin B12 1000 MCG Vitamin B12 1000 MCG No 1{table t} QD Vitamin B12 1000 MCG Isosorbide Mononitrate ER 30 MG Isosorbide Mononitrate ER 30 MG No 1{table t_in_ e_morni ng} QD Isosorbide Mononitrat e ER 30 MG Vital Signs Vital Name Observation Time Observation Value Comments S ource height 2023-09-26 16:15:00 73 [in_i] Commo n [facility] weight 2023-09-26 16:15:00 169 [lb_av] Comm on [facility] temperature 2023-09-26 16:15:00 98.7 [degF] Com [facility] bmi 2023-09-26 16:15:00 22.29 kg/m2 Comm on [facility] oximetry 2023-09-26 16:15:00 97 % Commo n [facility] blood pressure systolic 2023-09-26 16:15:00 138 mm[Hg[facility] blood pressure diastolic 2023-09-26 16:15:00 86 mm[Hg] [facility] height 2023-08-01 15:30:00 73 [in_i] Commo n [facility] weight 2023-08-01 15:30:00 183.4 [lb_av] Co [facility] temperature 2023-08-01 15:30:00 98.1 [degF] Com [facility] bmi 2023-08-01 15:30:00 24.19 kg/m2 Comm on [facility] oximetry 2023-08-01 15:30:00 99 % Commo n [facility] respiratory rate 2023-08-01 15:30:00 18 /min [facility] blood pressure systolic 2023-08-01 15:30:00 170 mm[Hg] [facility] blood pressure diastolic 2023-08-01 15:30:00 88 mm[Hg] [facility] height 2023-06-28 16:30:00 73 [in_i] Commo n [facility] weight 2023-06-28 16:30:00 185.6 [lb_av] Co [facility] temperature 2023-06-28 16:30:00 98.4 [degF] Com [facility] bmi 2023-06-28 16:30:00 24.48 kg/m2 Comm on [facility] oximetry 2023-06-28 16:30:00 98 % Commo n [facility] respiratory rate 2023-06-28 16:30:00 18 /min [facility] blood pressure systolic 2023-06-28 16:30:00 166 mm[Hg] [facility] blood pressure diastolic 2023-06-28 16:30:00 82 mm[Hg] [facility] Encounters Start Date/Time End Date/Time Encounter Type Admission Type Attending [facility] Care Department Encounter ID Source 2023-10-03 09:35:02 Outpatient [facility] [id number] [facility] 2023-08-17 15:07:00 Outpatient [facility] [id number] [facility] 2023-07-11 16:32:00 Outpatient [facility] [id number] [facility] 2023-06-28 15:57:03 Outpatient [facility] [id number] [facility] 2024-02-04 00:00:00 2024-02-04 00:00:00 ([place]) Nurse Visit [facility] [id number] [facility] 2024-01-22 00:00:00 2024-01-22 00:00:00 ([place]) Nurse Visit [facility] [id number] [facility] 2023-12-25 00:00:00 2023-12-25 00:00:00 ([place]) Nurse Visit [facility] [id number] [facility] 2023-11-21 00:00:00 2023-11-21 00:00:00 ([place]) Nurse Visit [facility] [id number] [facility] 2023-09-26 00:00:00 2023-09-26 00:00:00 OFFICE VISIT ESTAB PT LEVEL 5 [facility] [id number] [facility] 2023-08-29 00:00:00 2023-08-29 00:00:00 (PROC) Procedure [facility] [id number] [facility] 2023-08-03 00:00:00 2023-08-03 00:00:00 (TEL) [facility] [id number] [facility] 2023-08-01 00:00:00 2023-08-01 00:00:00 OFFICE VISIT ESTAB PT LEVEL 4 [facility] [id number] [facility] 2023-06-28 00:00:00 2023-06-28 00:00:00 OFFICE VISIT ESTAB PT LEVEL 2 [facility] [id number] [facility]
[2024-02-25 10:06] LABS: Specific Gravity 1.012 (1.005-1.030); Urine Bilirubin NEGATIVE (Negative); Urine Blood 2+ (Negative); Urine Clarity Extremely Turbid (Clear); Urine Color Light-Orange (Yellow); Urine Glucose NEGATIVE (Negative); Urine Ketones NEGATIVE (Negative); Urine Micro Reflex YN NO BILL NO MICROSCOPIC; Urine Nitrite NEGATIVE (Negative); Urine Protein 4+ (Over) (Negative); Urine Urobilinogen Normal (Normal); Urine pH 6.5 (5.0-7.0)
[2024-02-25 10:08] LABS: Urine Bacteria 20-50 /HPF (<20); Urine RBC >50 /HPF (None Seen); Urine WBC >50 /HPF (<5)
[2024-02-25 10:09] LABS: Urine Culture Reflex Order REFLEXED
--- NOTE | 2024-02-25 10:17 | ER ---
Nurse's Notes [facility] Name: Broderick Kaur Age: 83 yrs Sex: Male : 1940 Arrival Date: 02/25/2024 Time: 09:03 Bed 19 Private MD: Diagnosis: Acute cystitis with hematuria;Leakage of indwelling urethral catheter, initial encounter;Retention of urine, unspecified Presentation: 02/24 09:08 Chief complaint: Patient states: aleman catheter came out yesterday. Pt is requesting a ss new aleman. Coronavirus screen: Client denies travel out of the [place] in the last 14 days. Ebola Screen: Patient denies exposure to infectious person. Patient denies travel to an Ebola-affected area in the 21 days before illness onset. Initial Sepsis Screen: Does the patient meet any 2 criteria? No. Patient's initial sepsis screen is negative. Does the patient have a suspected source of infection? No. Patient's initial sepsis screen is negative. Risk Assessment: Do you want to hurt yourself or someone else? Patient reports no desire to harm self or others. Onset of symptoms was February 24, 2024. 09:08 Method Of Arrival: Ambulatory ss 09:08 Acuity: KARI 3 ss Triage Assessment: 10:37 General: Appears in no apparent distress. comfortable, Behavior is calm, cooperative. cm10 Neuro: No deficits noted. Level of Consciousness is awake, alert, obeys commands, Oriented to person, place, time, situation, Appropriate for age. Historical: - Allergies: 09:14 No Known Allergies; jl7 - PMHx: 09:14 AAA; ASBESTOS EXPOSURE; Atrial Fib; COLON CA; colostomy; Diabetes - IDDM; hemorrhoids; jl7 High Cholesterol; Hypertension; PERIPHERAL NEUROPATHY; PULMONARY HYPERTENSION; Rectal carcinoma; skin cancer; SVT; - Immunization history:: Adult Immunizations unknown. - Infectious Disease History:: Denies. - Social history:: Smoking status: unknown. Screenin:15 [facility] ED Fall Risk Assessment (Adult) History of falling in the last 3 months, jl7 including since admission No falls in past 3 months (0 pts) Confusion or Disorientation No (0 pts) Intoxicated or Sedated No (0 pts) Impaired Gait No (0 pts) Mobility Assist Device Used No (0 pt) Altered Elimination No (0 pt) Score/Fall Risk Level 0 - 2 = Low Risk Oriented to surroundings, Maintained a safe environment. Abuse screen: Denies threats or abuse. Denies injuries from another. Nutritional screening: No deficits noted. Tuberculosis screening: No symptoms or risk factors identified. Assessment: 10:12 Reassessment: Patient appears in no apparent distress at this time. No changes from cm10 previously documented assessment. Patient and/or family updated on plan of care and expected duration. Pain level reassessed. Patient is alert, oriented x 3, equal unlabored respirations, skin warm/dry/pink. Pain: Denies pain. Vital Signs: 09:08 Pulse 50; Resp 17; Temp 97.6(O); Pulse Ox 100% on R/A; Weight 79.83 kg; Height 6 ft. 1 ss in. ; 09:31 BP 211 / 78; jl7 10:12 BP 200 / 83; Pulse 44; Resp 15; Pulse Ox 98% ; cm10 09:08 Body Mass Index 23.22 (79.83 kg, 185.42 cm) ED Course: 09:05 Patient arrived in ED. ra3 09:06 Angeli Neal MD is Attending Physician. gb1 09:14 Jean Carlos Peña, RN is Primary Nurse. jl7 09:14 Arm band placed on right wrist. Patient placed in an exam room, on a stretcher. jl7 09:15 Patient has correct armband on for positive identification. Provided Education on: use jl7 of call zapata. 09:22 Triage completed. ss 09:32 Bladder scan completed. 218 mL. jl7 09:54 Urine collected: Aleman catheter specimen, cloudy. Aleman cath inserted, using sterile jl7 technique, 18 Fr., by sc, balloon inflated, to gravity drainage, urine specimen collected. 10:07 Primary Nurse role handed off by Jean Carlos Peña, ELISHA cm10 10:07 Sujata Austin, ELISHA is Primary Nurse. cm10 10:14 Masood Burkett MD is Referral Physician. gb1 10:37 No provider procedures requiring assistance completed. Patient did not have IV access cm10 during this emergency room visit. Administered Medications: No medications were administered Medication: 09:15 VIS not applicable for this client. jl7 Outcome: 10:17 Discharge ordered by . gb1 10:36 Discharged to home ambulatory, cm10 10:36 Condition: good 10:36 Discharge instructions given to patient, Instructed on discharge instructions, follow up and referral plans. medication usage, Demonstrated understanding of instructions, follow-up care, medications, Prescriptions given X 1, 10:37 Patient left the ED. cm10 Addendum: 02/28/2024 08:38 Addendum: Culture Results: Positive urine culture. No further action required. Bacteria i w sensitive to prescribed antibiotic. Signatures: Sushma Hartmann, RN ELISHA Kate Pope RN RN Jean Carlos Peña RN RN jl7 Sujata Austin RN RN cm10 Angeli Neal MD MD gb1 Ly Thomas ra3 Corrections: (The following items were deleted from the chart) 02/24 09:15 09:14 PMHx: skin ca; jl7 jl7
--- NOTE | 2024-02-25 10:18 | EDPHYS ---
Physician Documentation [facility] Name: Broderick Kaur Age: 83 yrs Sex: Male : 1940 Arrival Date: 02/25/2024 Time: 09:03 Bed 19 Private MD: ED Physician Angeli Neal HPI: 02/24 09:55 This 83 yrs old Male presents to ER via Ambulatory with complaints of Needs gb1 Urinary Catheter Replacement. 09:55 83-year-old male presents with a Hugo catheter which the balloon is popped. He noticed gb1 last night that he has had some difficulty with the catheter as it keeps dropping down the last band on his right thigh. He has had this happen to him once before. He states that he has a Hugo catheter due to blood clots from his kidneys. He is able to urinate into the bag and it has been clear urine. He denies any abdominal pain or fevers. He is currently not on any antibiotics.. Historical: - Allergies: 09:14 No Known Allergies; jl7 - PMHx: 09:14 AAA; ASBESTOS EXPOSURE; Atrial Fib; COLON CA; colostomy; Diabetes - IDDM; hemorrhoids; jl7 High Cholesterol; Hypertension; PERIPHERAL NEUROPATHY; PULMONARY HYPERTENSION; Rectal carcinoma; skin cancer; SVT; - Immunization history:: Adult Immunizations unknown. - Infectious Disease History:: Denies. - Social history:: Smoking status: unknown. Exam: 09:55 Constitutional: This is a well developed, well nourished patient who is awake, alert, gb1 and in no acute distress. Head/Face: Normocephalic, atraumatic. Eyes: Pupils equal round and reactive to light, extra-ocular motions intact. Lids and lashes normal. Conjunctiva and sclera are non-icteric and not injected. Cornea within normal limits. Periorbital areas with no swelling, redness, or edema. ENT: Nares patent. No nasal discharge, no septal abnormalities noted. Tympanic membranes are normal and external auditory canals are clear. Oropharynx with no redness, swelling, or masses, exudates, or evidence of obstruction, uvula midline. Mucous membranes moist. Neck: Trachea midline, no thyromegaly or masses palpated, and no cervical lymphadenopathy. Supple, full range of motion without nuchal rigidity, or vertebral point tenderness. No Meningismus. Chest/axilla: Normal chest wall appearance and motion. Nontender with no deformity. No lesions are appreciated. Cardiovascular: Regular rate and rhythm with a normal S1 and S2. No gallops, murmurs, or rubs. Normal PMI, no JVD. No pulse deficits. Respiratory: Lungs have equal breath sounds bilaterally, clear to auscultation and percussion. No rales, rhonchi or wheezes noted. No increased work of breathing, no retractions or nasal flaring. Abdomen/GI: Soft, non-tender, with normal bowel sounds. No distension or tympany. No guarding or rebound. No evidence of tenderness throughout. Back: No spinal tenderness. No costovertebral tenderness. Full range of motion. Male : Normal genitalia with no discharge or lesions. Patient has Hugo catheter balloon that is clearly disintegrated and problems. There was no blood or any pain on exam. Skin: Warm, dry with normal turgor. Normal color with no rashes, no lesions, and no evidence of cellulitis. MS/ Extremity: Pulses equal, no cyanosis. Neurovascular intact. Full, normal range of motion. Neuro: Awake and alert, GCS 15, oriented to person, place, time, and situation. Cranial nerves II-XII grossly intact. Motor strength 5/5 in all extremities. Sensory grossly intact. Cerebellar exam normal. Normal gait. Vital Signs: 09:08 Pulse 50; Resp 17; Temp 97.6(O); Pulse Ox 100% on R/A; Weight 79.83 kg; Height 6 ft. 1 ss in. ; 09:31 BP 211 / 78; jl7 10:12 BP 200 / 83; Pulse 44; Resp 15; Pulse Ox 98% ; cm10 09:08 Body Mass Index 23.22 (79.83 kg, 185.42 cm) ss MDM: 09:12 Medical Screening Exam initiated gb1 09:55 Data reviewed: vital signs, nurses notes, Bladder scan revealed a postvoid residual gb1 greater than 200 cc.. ED course: 83-year-old male with likely bladder outlet obstruction here with an indwelling Hugo catheter that has a balloon that is popped. The patient's PVR is greater than 200 cc and I will replace the Hugo catheter and send urinalysis to rule out cystitis. There is no hematuria. Patient is not currently on any antibiotics. Patient otherwise awake alert and without any complications or complaints. Patient's blood pressure is 211/78 and he does have a history of hypertension, diabetes and atrial fibrillation. Patient denies any chest pain or shortness of breath.. 10:13 ED course: Patient with cystitis today. I reviewed the previous urine culture from gb1 April 30, 2023 which showed Klebsiella sensitive once susceptible to Bactrim which I will prescribe today. Patient at this time does not appear septic he appears well clinically, afebrile no flank pain I doubt acute pyelonephritis, infected stone or sepsis at this time. I will recommend he follow-up with Dr. Burkett in the next 1 to 2 weeks note given explicit return precautions as well changes compliant with prior discharge home today.. 02/24 09:23 Order name: UAM; Complete Time: 10:09 gb1 02/24 10:11 Order name: Urine Culture EDMS 02/24 09:32 Order name: Bladder Scanner; Complete Time: 09:32 jl7 02/24 09:50 Order name: Hugo Leg Bag; Complete Time: 10:01 gb1 Administered Medications: No medications were administered Disposition Summary: 02/25/24 10:17 Discharge Ordered Notes: Location: Home gb1 Problem: an ongoing problem gb1 Symptoms: have improved gb1 Condition: Stable gb1 Diagnosis - Acute cystitis with hematuria gb1 - Leakage of indwelling urethral catheter, initial encounter gb1 - Retention of urine, unspecified gb1 Followup: gb1 - With: Masood Burkett MD - When: 1 week - Reason: If symptoms return Discharge Instructions: - Discharge Summary Sheet gb1 - Acute Urinary Retention, Male gb1 - Indwelling Urinary Catheter Care, Adult, [id number] gb1 Forms: - Medication Reconciliation Form gb1 - Antibiotic Education gb1 - Prescription Opioid Use gb1 - Patient Portal Instructions gb1 - Leadership Thank You Letter gb1 Prescriptions: - Bactrim DS 800-160 mg Oral Tablet - take 1 tablet ORAL route every 12 hours for 10 days; 20 tablet; Refills: 0, gb1 Product Selection Permitted Signatures: Dispatcher [employer] EDMS Jean Carlos Peña RN RN jl7 Angeli Neal MD MD gb1 Corrections: (The following items were deleted from the chart) 09:15 09:14 PMHx: skin ca; jl7 jl7
[2024-02-25 12:48] VITALS: TEMP 97.6
[2024-02-25 12:51] VITALS: BP 200/83; O2SAT 98
== END 2024-02-25 10:37 | disposition home or self-care (01) ==
LOC: ER 09:03
DX: N30.01 Acute cystitis with hematuria (principal); T83.038A Leakage of other urinary catheter, initial encounter; R33.9 Retention of urine, unspecified
CPT/HCPCS: 51702; 81001; 87077; 87086; 87088; 87186; 99284

== ENCOUNTER 2024-05-16 11:00 | Emergency (ER) | payer OTHER ==
--- OUTSIDE RECORDS SUMMARY | 2024-05-16 11:03 | XMS REPORT | Continuity of Care Document ---
Author Name Unknown Address [address] [address] [address] [place] [address] [facility] Address [address] [address] [address] [place] [address] Care Team Providers Care High Tension Tester Name Role Phone Unavailable Unavailable Unavailable Problems Condition Name Condition Details Condition Category Status Onset Date Resolution Date Last Treatment Date Treating Clinician Comments Source [id number] Acute urinary retention Problem [facility] [id number] Other obstructiv e and reflux uropathy Problem [facility] [id number] Elevated PSA Problem [facility] [id number] Bilateral hydronephr osis Problem [facility] [id number] Detrusor dysfunctio n Problem [facility] [id number] Detrusor instabilit y Problem [facility] [id number] Gross hematuria Problem [facility] Urinary retention Urinary retention Problem [facility] [id number] Benign prostatic hyperplasi a with lower urinary tract symptoms Problem [facility] Social History Social Habit Start Date Stop Date Quantity Comments Source History of Tobacco Use [facility] Sex Assigned At [facility] Smoking Status Start Date Stop Date Source Former Smoker 2024-04-17 00:00:00 2024-04-17 00:00:00 [facility] Never Smoker [facility] Medications Ordered Medication Name Filled Medication Name Start Date Stop Date Current Medication? Ordering Clinician Indication Dosage Frequency Signature (SIG) Comments Components Source Finasteride 5 MG Finasteride 5 MG 5-0 2-20 00:00: 00 No 1{table t} QD Finasterid e 5 MG Lisinopril 30 MG Lisinopril 30 MG No 1{table t} QD Lisinopril 30 MG Ergocalcife rol 1.25 MG (77528 UT) Ergocalcife rol 1.25 MG (18003 UT) No 1{capsu le} Ergocalcif geovani 1.25 MG (38121 UT) Furosemide 20 MG Furosemide 20 MG [...] Isosorbide Mononitrate ER 30 MG No 1{table t_in_th e_morni ng} QD Isosorbide Mononitrat e ER 30 MG Vital Signs Vital Name Observation Time Observation Value Comments S yennifer height 2024-04-17 14:00:00 73 [in_i] Commo n [facility] weight 2024-04-17 14:00:00 174.0 [lb_av] Co [facility] temperature 2024-04-17 14:00:00 97.9 [degF] Com [facility] bmi 2024-04-17 14:00:00 22.95 kg/m2 Comm on [facility] oximetry 2024-04-17 14:00:00 97 % Commo n [facility] respiratory rate 2024-04-17 14:00:00 18 /min [facility] blood pressure systolic 2024-04-17 14:00:00 178 mm[Hg] [facility] blood pressure diastolic 2024-04-17 14:00:00 90 mm[Hg] [facility] respiratory rate 2024-03-20 10:15:00 18 /min [facility] blood pressure systolic 2024-03-20 10:15:00 187 mm[Hg] [facility] blood pressure diastolic 2024-03-20 10:15:00 103 mm[Hg] [facility] height 2024-03-20 10:15:00 73 [in_i] Commo n [facility] weight 2024-03-20 10:15:00 173.6 [lb_av] Co [facility] temperature 2024-03-20 10:15:00 97.9 [degF] Com [facility] bmi 2024-03-20 10:15:00 22.9 kg/m2 Commo n [facility] oximetry 2024-03-20 10:15:00 95 % Commo n [facility] height 2023-09-26 16:15:00 73 [in_i] Commo n [facility] weight 2023-09-26 16:15:00 169 [lb_av] Comm on [facility] temperature 2023-09-26 16:15:00 98.7 [degF] Com mon [facility] bmi 2023-09-26 16:15:00 22.29 kg/m2 Comm on [facility] oximetry 2023-09-26 16:15:00 97 % Commo n [facility] blood pressure systolic 2023-09-26 16:15:00 138 mm[Hg] [facility] diastolic 2023-09-26 16:15:00 86 mm[Hg] [facility] height 2023-08-01 15:30:00 73 [in_i] Commo n [facility] weight 2023-08-01 15:30:00 183.4 [lb_av] Co mmon [facility] temperature 2023-08-01 15:30:00 98.1 [degF] Com [facility] bmi 2023-08-01 15:30:00 24.19 kg/m2 Comm on [facility] oximetry 2023-08-01 15:30:00 99 % Commo n [facility] respiratory rate 2023-08-01 15:30:00 18 /min Common [facility] blood pressure systolic 2023-08-01 15:30:00 170 mm[Hg] Common [facility] blood pressure diastolic 2023-08-01 15:30:00 88 mm[Hg] [facility] height 2023-06-28 16:30:00 73 [in_i] Commo n [facility] weight 2023-06-28 16:30:00 185.6 [lb_av] Co mmon [facility] temperature 2023-06-28 16:30:00 98.4 [degF] Com mon [facility] bmi 2023-06-28 16:30:00 24.48 kg/m2 Comm on [facility] oximetry 2023-06-28 16:30:00 98 % Commo n [facility] respiratory rate 2023-06-28 16:30:00 18 /min [facility] blood pressure systolic 2023-06-28 16:30:00 166 mm[Hg] [facility] blood pressure diastolic 2023-06-28 16:30:00 82 mm[Hg] [facility] Encounters Start Date/Time End Date/Time Encounter Type Admission Type Attending Clinicians Care Facility Care Department Encounter ID Source 2024-03-21 10:30:00 Outpatient [facility] [id number] [facility] 2024-03-14 09:30:00 Outpatient [facility] [id number] [facility] 2023-10-03 09:35:02 Outpatient [facility] [id number] [facility] 2023-08-17 15:07:00 Outpatient [facility] [id number] [facility] 2023-07-11 16:32:00 Outpatient [facility] [id number] [facility] 2023-06-28 15:57:03 Outpatient [facility] [id number] [facility] 2024-04-17 00:00:00 2024-04-17 00:00:00 OFFICE VISIT ESTAB PT LEVEL 4 [facility] [id number] [facility] 2024-03-20 00:00:00 2024-03-20 00:00:00 OFFICE VISIT ESTAB PT LEVEL 4 [facility] [id number] [facility] 2024-02-04 00:00:00 2024-02-04 00:00:00 ([place]) Nurse Visit [facility] [id number] [facility] 2024-01-22 00:00:00 2024-01-22 00:00:00 (NV) Nurse Visit [facility] [id number] [facility] 2023-12-25 00:00:00 2023-12-25 00:00:00 (NV) Nurse Visit [facility]C [facility] [id number] [facility] 2023-11-21 00:00:00 2023-11-21 00:00:00 (NV) Nurse Visit [facility]C [facility] [id number] [facility] 2023-09-26 00:00:00 2023-09-26 00:00:00 OFFICE VISIT ESTAB PT LEVEL 5 [facility] ST[facility] [id number] [facility] 2023-08-29 00:00:00 2023-08-29 00:00:00 (PROC) Procedure [facility]C ST[facility] [id number] [facility] 2023-08-03 00:00:00 2023-08-03 00:00:00 (TEL) STLMLC ST[facility] [id number] [facility] 2023-08-01 00:00:00 2023-08-01 00:00:00 OFFICE VISIT ESTAB PT LEVEL 4 [facility] ST[facility] [id number] [facility] 2023-06-28 00:00:00 2023-06-28 00:00:00 OFFICE VISIT ESTAB PT LEVEL 2 [facility] STL[facility] [id number] [facility]
--- NOTE | 2024-05-16 11:42 | ER ---
Nurse's Notes [facility] Name: Broderick Kaur Age: 84 yrs Sex: Male : 1940 Arrival Date: 05/16/2024 Time: 11:00 Bed IW3 Private MD: Diagnosis: Localized swelling, mass and lump, head;Essential (primary) hypertension Presentation: 05/16 11:11 Chief complaint: Patient states: skin lesion on top of forehead X 1-2 months , also has iw a knot on his right breast area. Coronavirus screen: At this time, the client does not indicate any symptoms associated with coronavirus-19. Ebola Screen: No symptoms or risks identified at this time. Initial Sepsis Screen: Does the patient meet any 2 criteria? No. Patient's initial sepsis screen is negative. Does the patient have a suspected source of infection? No. Patient's initial sepsis screen is negative. Risk Assessment: Do you want to hurt yourself or someone else? Patient reports no desire to harm self or others. 11:11 Method Of Arrival: Ambulatory iw 11:11 Acuity: KARI 3 iw 11:15 Onset of symptoms was March 2024. iw Historical: - Allergies: 11:13 No Known Allergies; iw - PMHx: 11:13 Diabetes - IDDM; PERIPHERAL NEUROPATHY; Rectal carcinoma; AAA; colostomy; ASBESTOS iw EXPOSURE; Atrial Fib; COLON CA; PULMONARY HYPERTENSION; High Cholesterol; skin cancer; SVT; hemorrhoids; Hypertension; Screenin:15 [facility] ED Fall Risk Assessment (Adult) History of falling in the last 3 months, iw including since admission No falls in past 3 months (0 pts) Confusion or Disorientation No (0 pts) Intoxicated or Sedated No (0 pts) Impaired Gait No (0 pts) Mobility Assist Device Used No (0 pt) Altered Elimination No (0 pt) Score/Fall Risk Level 0 - 2 = Low Risk Oriented to surroundings. Abuse screen: Denies threats or abuse. Denies injuries from another. Nutritional screening: No deficits noted. Tuberculosis screening: No symptoms or risk factors identified. Assessment: 11:15 General: Appears in no apparent distress. Pain: Denies pain. Neuro: Level of iw Consciousness is awake, alert, obeys commands, Oriented to person, place, time, situation, Moves all extremities. Cardiovascular: Patient's skin is warm and dry. Respiratory: Respiratory effort is even, unlabored, Respiratory pattern is regular. Derm: skin mass noted to right forehead. Musculoskeletal: Range of motion: intact in all extremities. Vital Signs: 11:11 BP 207 / 87; Pulse 48; Resp 18; Temp 97.5; Pulse Ox 99% on R/A; iw ED Course: 11:03 Patient arrived in ED. mr 11:04 Angeli Neal MD is Attending Physician. gb1 11:13 Triage completed. iw 11:14 Arm band placed on. iw 12:39 Sushma Hartmann, RN is Primary Nurse. iw Administered Medications: No medications were administered Outcome: 11:41 Discharge ordered by . gb1 12:38 Discharged to home ambulatory, iw 12:38 Condition: good 12:38 Discharge instructions given to patient, Instructed on discharge instructions, follow up and referral plans. Demonstrated understanding of instructions, follow-up care, 12:39 Patient left the ED. iw Signatures: Moriah Monahan, Reg Reg Sushma Hartmann, RN RN iw Angeli Neal MD MD gb1
--- NOTE | 2024-05-16 11:42 | EDPHYS ---
Physician Documentation [facility] Name: Broderick Kaur Age: 84 yrs Sex: Male : 1940 Arrival Date: 05/16/2024 Time: 11:00 Bed IW3 Private MD: ED Physician Angeli Neal HPI: 05/16 11:43 This 84 yrs old Male presents to ER via Ambulatory with complaints of Open gb1 wound. 11:43 84-year-old male here with a wound to the right forehead. He also has a gb1 history of skin cancer, rectal cancer, diabetes and some dependent, AAA and he has a history of a colostomy. He has a history of hypertension and does not take his medicines today due to the fact that he was trying to return home and be out of the house early this morning so he can return to his who has severe dementia. Patient states the wound has been bleeding a little bit but it has been controlled. It does not hurt but he started as a smaller wound that he picks.. Historical: - Allergies: 11:13 No Known Allergies; iw - PMHx: 11:13 Diabetes - IDDM; PERIPHERAL NEUROPATHY; Rectal carcinoma; AAA; colostomy; ASBESTOS iw EXPOSURE; Atrial Fib; COLON CA; PULMONARY HYPERTENSION; High Cholesterol; skin cancer; SVT; hemorrhoids; Hypertension; Exam: 11:43 Constitutional: This is a well developed, well nourished patient who is awake, alert, gb1 and in no acute distress. Head/Face: Patient has a 1 inch x 1 inch area on his right frontal forehead that is a soft fleshy mass with no active bleeding. It is protruding from his head. It is covered. Eyes: Pupils equal round and reactive to light, extra-ocular motions intact. Lids and lashes normal. Conjunctiva and sclera are non-icteric and not injected. Cornea within normal limits. Periorbital areas with no swelling, redness, or edema. ENT: Nares patent. No nasal discharge, no septal abnormalities noted. Tympanic membranes are normal and external auditory canals are clear. Oropharynx with no redness, swelling, or masses, exudates, or evidence of obstruction, uvula midline. Mucous membranes moist. Neck: Trachea midline, no thyromegaly or masses palpated, and no cervical lymphadenopathy. Supple, full range of motion without nuchal rigidity, or vertebral point tenderness. No Meningismus. Chest/axilla: Normal chest wall appearance and motion. Nontender with no deformity. No lesions are appreciated. Cardiovascular: Regular rate and rhythm with a normal S1 and S2. No gallops, murmurs, or rubs. Normal PMI, no JVD. No pulse deficits. Respiratory: Lungs have equal breath sounds bilaterally, clear to auscultation and percussion. No rales, rhonchi or wheezes noted. No increased work of breathing, no retractions or nasal flaring. Back: No spinal tenderness. No costovertebral tenderness. Full range of motion. Vital Signs: 11:11 BP 207 / 87; Pulse 48; Resp 18; Temp 97.5; Pulse Ox 99% on R/A; iw MDM: 11:27 Medical Screening Exam initiated gb1 11:43 ED course: 84-year-old female male with a right frontal fleshy mass concerning for a gb1 basal cell skin cancer. Patient does have history of hypertension and did not take his medicines today. He denies any chest pain or shortness of breath currently and is otherwise stable. I will rerefer him back to his primary care doctor and have given him resources for dermatology to have that lesion biopsied and treated. Patient is compliant with his plan of care at discharge.. Administered Medications: No medications were administered Disposition Summary: 05/16/24 11:41 Discharge Ordered Notes: Location: Home gb1 Condition: Stable gb1 Diagnosis - Localized swelling, mass and lump, head gb1 - Essential (primary) hypertension gb1 Followup: gb1 - With: Private Physician - When: - Reason: Recheck today's complaints Discharge Instructions: - Discharge Summary Sheet gb1 - Managing Your Hypertension gb1 Forms: - Medication Reconciliation Form gb1 - Antibiotic Education gb1 - Prescription Opioid Use gb1 - Patient Portal Instructions gb1 - Leadership Thank You Letter gb1 Signatures: Sushma Hartmann RN RN iw Angeli Neal MD MD gb1
[2024-05-16 12:56] VITALS: BP 207/87; TEMP 97.5; O2SAT 99
== END 2024-05-16 12:39 | disposition home or self-care (01) ==
LOC: ER 11:00
DX: R22.0 Localized swelling, mass and lump, head (principal); I10 Essential (primary) hypertension; Z85.828 Personal history of other malignant neoplasm of skin; Z85.048 Personal history of other malignant neoplasm of rectum, rectosigmoid junction, and anus
CPT/HCPCS: 99282

== ENCOUNTER 2024-05-29 19:59 | Emergency (ER) | payer OTHER ==
--- OUTSIDE RECORDS SUMMARY | 2024-05-29 20:02 | XMS REPORT | Continuity of Care Document ---
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 Role Phone Unavailable Unavailable Unavailable Problems Condition Name Condition Details Condition Category Status Onset Date Resolution Date Last Treatment Date Treating Clinician Comments Source [id number] Acute urinary retention Problem [facility] [id number] Other obstructiv e and reflux uropathy Problem [facility] [id number] Elevated PSA Problem [facility] [id number] Bilateral hydronephr osis Problem [facility] [id number] Detrusor dysfunctio n Problem [facility] [id number] Detrusor instabilit y Problem [facility] [id number] Gross hematuria Problem [facility] Urinary retention Urinary retention Problem [facility] [id number] Benign prostatic hyperplasi a with lower urinary tract symptoms Problem [facility] Social History Social Habit Start Date Stop Date Quantity Comments Source History of Tobacco Use [facility] Sex Assigned At [facility] Smoking Status Start Date Stop Date Source Former Smoker 2024-05-26 00:00:00 2024-05-26 00:00:00 [facility] Never Smoker [facility] Medications Ordered Medication Name Filled Medication Name Start Date Stop Date Current Medication? Ordering Clinician Indication Dosage Frequency Signature (SIG) Comments Components Source Finasteride 5 MG Finasteride 5 MG 2-20 00:00: 00 No 1{table t} QD Finasterid e 5 MG Lisinopril 30 MG Lisinopril 30 MG No 1{table t} QD Lisinopril 30 MG Ergocalcife rol 1.25 MG (07674 [facility]) Ergocalcife rol 1.25 MG (28485 [facility]) No 1{capsu le} Ergocalcif geovani 1.25 MG (98824 [facility]) Furosemide 20 MG Furosemide 20 MG [...] Name Observation Time Observation Value Comments S devikace temperature 2024-04-17 14:00:00 97.9 [degF] Com [facility] bmi 2024-04-17 14:00:00 22.95 kg/m2 Comm on [facility] oximetry 2024-04-17 14:00:00 97 % Commo n [facility] respiratory rate 2024-04-17 14:00:00 18 /min Common [facility] blood pressure systolic 2024-04-17 14:00:00 178 mm[Hg] [facility] blood pressure diastolic 2024-04-17 14:00:00 90 mm[Hg] Common [facility] height 2024-04-17 14:00:00 73 [in_i] Commo n [facility] weight 2024-04-17 14:00:00 174.0 [lb_av] Co [facility] height 2024-03-20 10:15:00 73 [in_i] Commo n [facility] weight 2024-03-20 10:15:00 173.6 [lb_av] Co [facility] temperature 2024-03-20 10:15:00 97.9 [degF] Com [facility] bmi 2024-03-20 10:15:00 22.9 kg/m2 Commo n [facility] oximetry 2024-03-20 10:15:00 95 % Commo n [facility] respiratory rate 2024-03-20 10:15:00 18 /min [facility] blood pressure systolic 2024-03-20 10:15:00 187 mm[Hg] Common [facility] blood pressure diastolic 2024-03-20 10:15:00 103 mm[Hg] Common [facility] height 2023-09-26 16:15:00 73 [in_i] Commo n [facility] weight 2023-09-26 16:15:00 169 [lb_av] Comm on [facility] temperature 2023-09-26 16:15:00 98.7 [degF] Com mon [facility] bmi 2023-09-26 16:15:00 22.29 kg/m2 Comm on [facility] oximetry 2023-09-26 16:15:00 97 % Commo n [facility] blood pressure systolic 2023-09-26 16:15:00 138 mm[Hg] [facility] blood pressure diastolic 2023-09-26 16:15:00 86 mm[Hg] [facility] height 2023-08-01 15:30:00 73 [in_i] Commo n [facility] weight 2023-08-01 15:30:00 183.4 [lb_av] Co mmon [facility] temperature 2023-08-01 15:30:00 98.1 [degF] Com [facility] bmi 2023-08-01 15:30:00 24.19 kg/m2 Comm on [facility] oximetry 2023-08-01 15:30:00 99 % Commo n [facility] respiratory rate 2023-08-01 15:30:00 18 /min Common [facility] blood pressure systolic 2023-08-01 15:30:00 170 mm[Hg] Common [facility] blood pressure diastolic 2023-08-01 15:30:00 88 mm[Hg] [facility] height 2023-06-28 16:30:00 73 [in_i] Commo n [facility] weight 2023-06-28 16:30:00 185.6 [lb_av] Co mmon [facility] temperature 2023-06-28 16:30:00 98.4 [degF] Com [facility] bmi 2023-06-28 16:30:00 24.48 kg/m2 Comm on [facility] oximetry 2023-06-28 16:30:00 98 % Commo n [facility] respiratory rate 2023-06-28 16:30:00 18 /min [facility] blood pressure systolic 2023-06-28 16:30:00 166 mm[Hg] [facility] blood pressure diastolic 2023-06-28 16:30:00 82 mm[Hg] [facility] Spiri t [facility] Procedures Procedure Date / Time Performed Performing Clinicia n Source PVR 2024-05-26 00:00:00 Common S pirit [facility] Encounters Start Date/Time End Date/Time Encounter Type Admission Type Attending Clinicians Care Facility Care Department Encounter ID Source 2024-03-21 10:30:00 Outpatient [facility] [id number] [facility] 2024-03-14 09:30:00 Outpatient [facility] [id number] [facility] 2023-10-03 09:35:02 Outpatient [facility] [id number] [facility] 2023-08-17 15:07:00 Outpatient [facility] [id number] [facility] 2023-07-11 16:32:00 Outpatient [facility] ST[facility] [id number] [facility] 2023-06-28 15:57:03 Outpatient [facility] [id number] [facility] 2024-05-26 00:00:00 2024-05-26 00:00:00 (NV) Nurse Visit [facility] [id number] [facility] 2024-05-06 00:00:00 2024-05-06 00:00:00 (NV) Nurse Visit [facility] [id number] [facility] 2024-04-17 00:00:00 2024-04-17 00:00:00 OFFICE VISIT ESTAB PT LEVEL 4 [facility] [id number] [facility] 2024-03-20 00:00:00 2024-03-20 00:00:00 OFFICE VISIT ESTAB PT LEVEL 4 [facility] [id number] [facility] 2024-02-04 00:00:00 2024-02-04 00:00:00 (NV) Nurse Visit [facility]LMLC ST[facility]C [id number] [facility] 2024-01-22 00:00:00 2024-01-22 00:00:00 (NV) Nurse Visit [facility]LMLC [facility]C [id number] [facility] 2023-12-25 00:00:00 2023-12-25 00:00:00 (NV) Nurse Visit [facility]LMLC ST[facility]C [id number] [facility] 2023-11-21 00:00:00 2023-11-21 00:00:00 (NV) Nurse Visit [facility]LMLC [facility]C [id number] [facility] 2023-09-26 00:00:00 2023-09-26 00:00:00 OFFICE VISIT ESTAB PT LEVEL 5 [facility] [id number] [facility] 2023-08-29 00:00:00 2023-08-29 00:00:00 (PROC) Procedure STLMLC ST[facility]C [id number] [facility] 2023-08-03 00:00:00 2023-08-03 00:00:00 (TEL) STLMLC STL[facility]C [id number] [facility] 2023-08-01 00:00:00 2023-08-01 00:00:00 OFFICE VISIT ESTAB PT LEVEL 4 [facility] ST[facility]C [id number] [facility] 2023-06-28 00:00:00 2023-06-28 00:00:00 OFFICE VISIT ESTAB PT LEVEL 2 [facility] ST[facility]C [id number] [facility]
--- NOTE | 2024-05-29 22:35 | ER ---
Nurse's Notes [facility] Name: Broderick Kaur Age: 84 yrs Sex: Male : 1940 Arrival Date: 05/29/2024 Time: 19:59 Bed 14 Private MD: Diagnosis: Other mechanical complication of urinary (indwelling) catheter;UTI/ Urinary tract infection, site not specified Presentation: 05/29 20:42 Chief complaint: Patient states: My aleman catheter is stopped up. I noticed Urine jb4 leaking around my catheter about 6pm. Coronavirus screen: At this time, the client does not indicate any symptoms associated with coronavirus-19. Ebola Screen: No symptoms or risks identified at this time. Initial Sepsis Screen: Does the patient meet any 2 criteria? No. Patient's initial sepsis screen is negative. Does the patient have a suspected source of infection? No. Patient's initial sepsis screen is negative. Risk Assessment: Do you want to hurt yourself or someone else? Patient reports no desire to harm self or others. Onset of symptoms was May 29, 2024. Transition of care: patient was not received from another setting of care. 20:42 Method Of Arrival: Ambulatory jb4 20:42 Acuity: KARI 3 jb4 Historical: - Allergies: 20:45 No Known Allergies; jb4 - PMHx: 20:45 AAA; Atrial Fib; Hypertension; PERIPHERAL NEUROPATHY; Rectal carcinoma; High jb4 Cholesterol; PULMONARY HYPERTENSION; hemorrhoids; colostomy; Diabetes - IDDM; ASBESTOS EXPOSURE; COLON CA; skin cancer; SVT; - PSHx: 20:45 Cancere removal (SVT); jb4 - Immunization history:: Adult Immunizations up to date. - Infectious Disease History:: Denies. - Social history:: Smoking status: Patient denies any tobacco usage or history of. Screenin:00 [facility] ED Fall Risk Assessment (Adult) History of falling in the last 3 months, rg5 including since admission No falls in past 3 months (0 pts) Confusion or Disorientation No (0 pts) Intoxicated or Sedated No (0 pts) Impaired Gait No (0 pts) Mobility Assist Device Used No (0 pt) Altered Elimination No (0 pt) Score/Fall Risk Level 0 - 2 = Low Risk Hourly rounding (assess needs \T\ fall precautionary measures) done. Abuse screen: Denies threats or abuse. Nutritional screening: No deficits noted. Tuberculosis screening: No symptoms or risk factors identified. Assessment: 21:00 General: Appears in no apparent distress. comfortable, Behavior is calm, cooperative, rg5 appropriate for age. 21:00 Pain: Denies pain. Neuro: Level of Consciousness is awake, alert. Cardiovascular: rg5 Denies chest pain. Respiratory: Airway is patent Trachea midline Respiratory effort is even, unlabored, Respiratory pattern is regular, symmetrical, Breath sounds are clear bilaterally. GI: Abdomen is flat, non-distended. : Aleman in place to gravity drainage Urine is cloudy. EENT: No deficits noted. Derm: Skin is intact, Skin is dry, Skin is normal, Skin temperature is warm. Musculoskeletal: Circulation, motion, and sensation intact. Range of motion: intact in all extremities. 22:40 Reassessment: Patient and/or family updated on plan of care and expected duration. Pain rg5 level reassessed. Patient is alert, oriented x 3, equal unlabored respirations, skin warm/dry/pink. Patient states symptoms have improved. Vital Signs: 20:42 BP 185 / 68; Pulse 50; Resp 16; Temp 98.5(O); Pulse Ox 100% ; Weight 80.29 kg; Height 6 jb4 ft. 1 in. ; Pain 2/10; 21:20 BP 165 / 68; Pulse 55; Resp 19; Temp 98.5; Pulse Ox 100% on R/A; rg5 20:42 Body Mass Index 23.35 (80.29 kg, 185.42 cm) jb4 20:42 Pain Scale: Adult jb4 ED Course: 20:02 Patient arrived in ED. gm2 20:21 Tej Granger PA is PHCP. cp 20:21 Christiano Galeano MD is Attending Physician. cp 20:45 Triage completed. jb4 20:45 Arm band placed on right wrist. jb4 20:56 Pacheco Christopher, ELISHA is Primary Nurse. rg5 21:00 Patient has correct armband on for positive identification. Door closed. Noise rg5 minimized. 21:00 No provider procedures requiring assistance completed. Patient did not have IV access rg5 during this emergency room visit. 21:00 Patient tolerated flush with saline \T\ with good urine output. rg5 22:34 Masood Burkett MD is Referral Physician. cp 23:04 Provided Education on: post er care done. rg5 Administered Medications: 22:48 Drug: Rocephin (cefTRIAXone) IM 1 grams IM once Route: IM; Site: right gluteus; rg5 23:01 Follow up: Response: No adverse reaction rg5 Medication: 21:00 VIS not applicable for this client. rg5 Outcome: 22:35 Discharge ordered by MD. cp 23:04 Discharged to home ambulatory, rg5 23:04 Condition: stable 23:04 Discharge instructions given to patient, 23:04 Instructed on discharge instructions, follow up and referral plans. Demonstrated understanding of instructions, follow-up care, medications, Prescriptions given X 1, 23:05 Patient left the ED. rg5 Addendum: 06/02/2024 11:08 Addendum: Culture Results: Positive urine culture. No further action required. Bacteria s s sensitive to prescribed antibiotic. Signatures: Kate Pope, RN RN ss Tej Granger PA PA Valente Sapp, RN RN jb4 Gaviota Garzon 2 Pacheco Christopher, ELISHA RN rg5
--- NOTE | 2024-05-29 22:35 | EDPHYS ---
Physician Documentation [facility] Name: Broderick Kaur Age: 84 yrs Sex: Male : 1940 Arrival Date: 05/29/2024 Time: 19:59 Bed 14 Private MD: ED Physician Christiano Galeano HPI: 05/29 20:45 This 84 yrs old Male presents to ER via Ambulatory with complaints of Problem With cp Urinary Catheter. 20:45 The patient presents with a Hugo catheter problem, is not draining. cp 20:45 Onset: The symptoms/episode began/occurred today. cp 20:45 Associated signs and symptoms: Pertinent positives: suprapubic pain. cp Historical: - Allergies: 20:45 No Known Allergies; jb4 - PMHx: 20:45 AAA; Atrial Fib; Hypertension; PERIPHERAL NEUROPATHY; Rectal carcinoma; High jb4 Cholesterol; PULMONARY HYPERTENSION; hemorrhoids; colostomy; Diabetes - IDDM; ASBESTOS EXPOSURE; COLON CA; skin cancer; SVT; - PSHx: 20:45 Cancere removal (SVT); jb4 - Immunization history:: Adult Immunizations up to date. - Infectious Disease History:: Denies. - Social history:: Smoking status: Patient denies any tobacco usage or history of. ROS: 20:50 Constitutional: Negative for body aches, chills, fever, poor PO intake, cp 20:50 Eyes: Negative for injury, pain, redness, and discharge, cp 20:50 Cardiovascular: Negative for chest pain, 20:50 Abdomen/GI: Positive for abdominal pain, of the suprapubic area, 20:50 Back: Negative for pain at rest, pain with movement, 20:50 : Positive for retention of urine, 20:50 Neuro: Negative for altered mental status, dizziness, headache, weakness, 20:50 All other systems are negative, Exam: 20:55 Constitutional: The patient appears in no acute distress, alert, awake, non-toxic, well cp developed, well nourished, 20:55 Head/Face: Normocephalic, atraumatic. cp 20:55 Chest/axilla: Inspection: normal, 20:55 Cardiovascular: Rate: bradycardic, Rhythm: regular, 20:55 Respiratory: the patient does not display signs of respiratory distress, Respirations: normal, no use of accessory muscles, no retractions, 20:55 Abdomen/GI: Inspection: abdomen appears normal, Palpation: soft, in all quadrants, mild abdominal tenderness, in the suprapubic area, 20:55 Back: CVA tenderness, is absent, 20:55 Neuro: Orientation: to person, place \T\ time. Mentation: is normal, Motor: moves all fours, strength is normal, Sensation: is normal, Vital Signs: 20:42 BP 185 / 68; Pulse 50; Resp 16; Temp 98.5(O); Pulse Ox 100% ; Weight 80.29 kg; Height 6 jb4 ft. 1 in. ; Pain 2/10; 21:20 BP 165 / 68; Pulse 55; Resp 19; Temp 98.5; Pulse Ox 100% on R/A; rg5 20:42 Body Mass Index 23.35 (80.29 kg, 185.42 cm) jb4 20:42 Pain Scale: Adult jb4 MDM: 20:40 Medical Screening Exam initiated cp 22:35 Data reviewed: vital signs, nurses notes, lab test result(s), and as a result, I will cp discharge patient. 22:35 Differential diagnosis: UTI, urinary retention, Hugo catheter problem, prostatitis, cp urethritis. I considered the following discharge prescriptions or medication management in the emergency department Medications were administered in the Emergency Department. See MAR. Care significantly affected by the following chronic conditions: Hypertension. Counseling: I had a detailed discussion with the patient and/or guardian regarding the historical points, exam findings, and any diagnostic results supporting the discharge/admit diagnosis, lab results, the need for outpatient follow up, a urologist, to return to the emergency department if symptoms worsen or persist or if there are any questions or concerns that arise at home. 05/29 21:43 Order name: Urinalysis W/Microscopic; Complete Time: 22:46 cp 05/29 22:46 Interpretation: Reviewed. cp 05/29 22:40 Order name: Urine Culture EDUT 05/29 20:55 Order name: Hugo: please flush and irrigate; Complete Time: 21:11 cp Administered Medications: 22:48 Drug: Rocephin (cefTRIAXone) IM 1 grams IM once Route: IM; Site: right gluteus; rg5 23:01 Follow up: Response: No adverse reaction rg5 Disposition: 23:31 Co-signature as Attending Physician, Christiano Galeano MD I reviewed the patient's care rt provided by the Advanced Practice Provider and agree with the diagnosis and treatment plan. Disposition Summary: 05/29/24 22:35 Discharge Ordered Notes: Location: Home cp Problem: new cp Symptoms: have improved cp Condition: Stable cp Diagnosis - Other mechanical complication of urinary (indwelling) catheter cp - UTI/ Urinary tract infection, site not specified cp Followup: cp - With: Masood Burkett MD - When: 2 - 3 days - Reason: Worsening of condition Discharge Instructions: - Discharge Summary Sheet cp - Indwelling Urinary Catheter Care, Adult cp - Urinary Tract Infection, Adult cp Forms: - Medication Reconciliation Form cp - Antibiotic Education cp - Prescription Opioid Use cp - Patient Portal Instructions cp - Leadership Thank You Letter cp Prescriptions: - cefpodoxime 200 mg Oral tablet - take 1 tablet ORAL route every 12 hours for 7 days with food; 14 tablet; cp Refills: 0, Product Selection Permitted Signatures: Dispatcher [employer] EDUT Tej Granger PA PA cp Valente Mcintosh, RN RN jb4 Christiano Galeano MD MD rt Pacheco Christopher RN RN rg5
[2024-05-29 22:37] LABS: Specific Gravity 1.012 (1.005-1.030); Sqamous Epithelial None Seen /HPF (None Seen); Urine Bacteria 20-50 /HPF (<20); Urine Bilirubin NEGATIVE (Negative); Urine Blood 3+ (Negative); Urine Clarity Extremely Turbid (Clear); Urine Color Light-Orange (Yellow); Urine Crystals Unidentified Moderate /HPF (None Seen); Urine Culture Reflex Order REFLEXED; Urine Glucose 4+ (Over) (Negative); Urine Ketones NEGATIVE (Negative); Urine Micro Reflex YN NO BILL MICROSCOPIC; Urine Mucus 3+ /HPF (None Seen); Urine Nitrite NEGATIVE (Negative); Urine Protein 3+ (Negative); Urine RBC >50 /HPF (None Seen); Urine Urobilinogen Normal (Normal); Urine WBC >50 /HPF (<5); Urine WBC Clump Moderate /HPF (None Seen); Urine Yeast (Budding) Many /HPF (None Seen)
[2024-05-29] MEDS ORDERED: CEFTRIAXONE 1000 MG/VIAL ONE (22:47)
[2024-05-29] MEDS ORDERED: LIDOCAINE 1% MPF 2 ML AMPULE ONE (22:48)
[2024-05-29 23:23] VITALS: TEMP 98.5; O2SAT 100
[2024-05-29 23:24] VITALS: BP 165/68
== END 2024-05-29 23:05 | disposition home or self-care (01) ==
LOC: ER 19:59
DX: T83.098A Other mechanical complication of other urinary catheter, initial encounter (principal); N39.0 Urinary tract infection, site not specified; Z85.048 Personal history of other malignant neoplasm of rectum, rectosigmoid junction, and anus
CPT/HCPCS: 87088; 81001; 87086; 87077; 87186; 96372; 99284; J0696